=== PATIENT | female | born 1995 | race Caucasian/White ===

== ENCOUNTER → 2020-08-14 14:42 | Outpatient (CLI) | payer OTHER, SELFPAY ==
[2020-08-18 04:07] LABS: Chlamydia By Nucleic Acid AMP Negative (Negative)
[2020-08-18 07:38] LABS: Gonococcus By Nucleic Acid AMP Negative (Negative)
== END ==
PROVIDERS: Visit Provider Obstetrics & Gynecology
DX: Z12.4 Encounter for screening for malignant neoplasm of cervix (principal)
CPT/HCPCS: 87491; 87591; 88175; G0145

== ENCOUNTER 2021-08-27 05:09 | Inpatient (IN) | payer BC, SELFPAY ==
[2021-08-27] VITALS (15 sets, daily range): BP systolic 93–162; BP diastolic 50–117; PULSE 61–100; RESP 12–20; TEMP 36.4–37.1; O2SAT 94–100; BMI 18.3; BMI 17.2; BMI 18.0
[2021-08-27 05:34] LABS: Absolute Lymphocyte Count 2.15 X10^3/uL (0.83-4.51); Basophil# 0.03 X10^3/uL; Basophil% 0.3 % (0-1); Eosinophil# 0.14 X10^3/uL; Eosinophils% 1.3 % (0-5); Hematocrit 42.5 % (37-47); Hemoglobin 13.6 g/dL (12.0-15.0); Lymphocyte # 2.15 X10^3/ul (0.83-4.51); Lymphocyte % 19.9 % (19-41); Mean Corpuscular Hgb 28.5 pg (27.0-32.0); Mean Corpuscular Volume 89.1 fL (81-99); Mean Platelet Vol. 9.1 fl (6.2-12.0); Monocyte# 0.43 X10^3/uL; NRBC Flagged by Analyzer 0 % (0-5); Neutrophil # 8.04 X10^3/uL (2.7-7.7); Neutrophil % 74.2 % (47-70); Platelet Count 415 K/mm3 (150-450); RBC Distribution Width CV 14.4 % (11.6-14.6); RBC Distribution Width SD 47.1 fl (35.1-43.9); Red Blood Count 4.77 M/mm3 (4.2-5.4); White Blood Count 10.8 K/mm3 (4.4-11.0)
--- NOTE | 2021-08-27 05:42 | CT_ITS ---
EXAM: CT ABDOMEN AND PELVIS WITH INTRAVENOUS CONTRAST CLINICAL INDICATION: abd pain TECHNIQUE: Helically acquired images were obtained of the abdomen and pelvis with intravenous contrast. This CT exam was performed using one or more of the following dose reduction techniques: automated exposure control, adjustment of the mA and/or kV according to patient size, and/or use of iterative reconstruction technique. This report was created using Drobo report generation technology. CONTRAST: IV 100mL Isovue-300 RADIATION DOSE: CTDIvol = 9.16 mGy, DLP = 245.36 mGy-cm. COMPARISON: None. FINDINGS: LOWER THORAX: Unremarkable. Lung bases are clear. No cardiomegaly. No significant pericardial effusion. ABDOMEN: LIVER: Unremarkable. Homogeneous. No focal mass. GALLBLADDER AND BILE DUCTS: Unremarkable. No calcified gallstones. No gallbladder distention or wall edema. No intra- or extrahepatic biliary ductal dilation. PANCREAS: Unremarkable. No focal cystic or solid mass. SPLEEN: Unremarkable. Normal size without focal cystic or solid mass. ADRENALS: Unremarkable. No nodules. KIDNEYS AND URETERS: Unremarkable. Normal renal size and position. No hydronephrosis. STOMACH AND BOWEL: Unremarkable. No stomach or bowel distention. No focal inflammatory change. PELVIS: APPENDIX: Normal appendix. BLADDER: Unremarkable. REPRODUCTIVE: Severe bilateral hydrosalpinx. Ovaries not visualized. ABDOMEN and PELVIS: INTRAPERITONEAL SPACE: Mild ascites. No free air. BONES/JOINTS: Unremarkable. No suspicious lytic or blastic abnormality. SOFT TISSUES: Unremarkable. No discrete abdominal or pelvic wall hernia. VASCULATURE: Unremarkable. Abdominal aorta is non-dilated. LYMPH NODES: Unremarkable. No enlarged lymph nodes. CT/Abdomen/Pelvis W IV Cont ONLY IMPRESSION: 1. Severe bilateral hydrosalpinx. Infection cannot be excluded. 2. Mild ascites. 3. Normal appendix. Electronically Signed: Aaron Draper MD at 7:06 EDT ,
[2021-08-27 05:51] LABS: Anion Gap 4 (5-15); BUN 10 mg/dL (7-18); BUN/Creat Ratio 11.9 RATIO (10-20); Calcium,Total 9.2 mg/dL (8.5-10.1); Chloride 106 mmol/L (98-107); Creatinine, Serum 0.84 mg/dL (0.55-1.02); EST Glomerular Filtration Rate 89 mL/min (>60); Est Glom Filt Rate - Afr Amer 107 mL/min (>60); Estimated Creatinine Clearance 69.45 ml/min; Glucose 122 mg/dL (74-106); Internal QC Validated? YES +Cl - CLEAR BKGD; Potassium 3.8 mmol/L (3.5-5.1); Pregnancy, Serum, hCG Quali. NEGATIVE Negative; Sodium Level 136 mmol/L (136-145)
[2021-08-27] MEDS: 0.9% Normal Saline 1,000 ML 999 ML IV (05:58)
[2021-08-27] MEDS: Morphine 4 MG/ML Syringe IV (05:59)
[2021-08-27] MEDS: Ondansetron 4 MG/2 ML Vial IV (05:59)
[2021-08-27 06:27] LABS: Lactic Acid 1.3 mmol/L (0.4-1.9)
--- NOTE | 2021-08-27 07:12 | US_ITS ---
STUDY: ULTRASOUND OF THE FEMALE PELVIS - COMPLETE REASON FOR EXAM: Female, 26 years old. pelvic pain with abnormal CT LMP: 08/14/2021 TECHNIQUE: Transabdominal TECHNICAL QUALITY: Adequate. COMPARISON: CT earlier today FINDINGS: The uterus is anteverted and is in a midline position. The uterus measures 5.6 x 4.5 x 3.2 cm. Normal uterine cervix. The endometrium measures 4 mm in thickness, and is hyperechoic. There is no demonstrated endometrial mass. There is no demonstrated myometrial mass. I.U.D. - The patient does not have an I.U.D. The right ovary is non-visualized. There is a 7 x 8 cm cystic mass in the right adnexa corresponding to the mass seen on CT worrisome for tubo-ovarian abscess.. The left ovary is visualized. The left ovary measures 5.2 x 5.3 x 3.5 cm. There is no left ovarian cyst or ovarian mass. There is no visualized left adnexal mass or complex lesion. There is normal arterial and normal venous vascularity. There is a moderate amount of fluid in the cul-de-sac. The pre void volume of the bladder was ml. The post void volume of the bladder was ml. Polycystic ovary disease: No. US/Pelvic (Non ) IMPRESSION: Suspect 8 cm right-sided tubo-ovarian abscess. Electronically Signed: Maikel Perera MD at 9:08 EDT ,
[2021-08-27 07:37] LABS: Bacteria 0 SEEN /hpf (None Seen); Mucous, Urine 0 SEEN /hpf (<or=2+); Red Blood Cells-Urine 0 SEEN /hpf (0-5); White Blood Cells 0 SEEN /hpf (0-5)
[2021-08-27 07:39] LABS: Color, Urine Yellow (Yellow); Glucose, Dipstick Normal (Normal); Ketone-Dipstick Negative (Negative); Leukocyte Esterase-Dipstick Negative /ul (Negative); Nitrite-Dipstick Negative (Negative); Occult Blood-Urine 25 /ul (Negative); Protein-Dipstick Negative (Negative); Urine Bilirubin Dipstick Negative (Negative); Urine Clarity Clear (Clear); Urine Urobilinogen Normal (Normal)
[2021-08-27 07:54] LABS: Squamous Epithelial Cells - UA 0-5 SEEN /hpf (5-10)
[2021-08-27] MEDS: HYDROmorphone 1 MG/ML Syringe IV (08:17)
--- NOTE | 2021-08-27 08:19 | EDS_ITS ---
HPI History of Present Illness Chief Complaint: Abd Pain Narrative Narrative: Patient is a 26-year-old female who states that she had generalized lower abdominal pain for the past week but was on her menstrual cycle. She states she did not think much of this because of the menstrual cycle occurring. She states that around 3 in the morning she developed severe lower abdominal pain. She states with the pain she became nauseous but denies any fevers or chills nausea or vomiting prior to the pain beginning. She denies any vaginal discharge or concern for STD. She states that with the sudden increase in pain she is concerned for infection and therefore comes in for evaluation [facility] Medical History Migraine Home Medications NK 08/27/21 [History Last Taken Unknown] Allergy/AdvReac Type Severity Reaction Status Date / Time No Known Allergies Allergy Verified 08/27/21 05:17 Social History Smoking Status: Current every day smoker tobacco type: cigarettes ROS ROS ED Constitutional Constitutional ED: Denies chills or fever(s) ENT ENT ED: Denies sore throat Cardiovascular Cardiovascular: Denies chest pain Respiratory/Chest Respiratory/Chest: Denies cough or dyspnea Gastrointestinal Gastrointestinal: Reports abdominal pain and nausea; Denies diarrhea or vomiting Genitourinary Genitourinary ED: Denies dysuria Musculoskeletal Musculoskeletal: Denies myalgias Integumentary Denies rash Neurologic Neurologic: Denies headache(s) Hematologic/Lymphatic Hematologic/Lymphatic: Denies easy bleeding or easy bruising EXAM Physical Exam Const Vital Signs: 08/27/21 05:11 Temperature 97.6 F L Temperature Source Temporal Pulse Rate 61 Respiratory Rate 20 H Blood Pressure 124/76 H Blood Pressure Mean 92 Pulse Ox 100 Oxygen Delivery Method Room Air Positive well nourished and well developed General Appearance ED: well developed HEENT Reports dry mucous membranes Mouth ED: Yes dry mucous membranes Mouth: dry mucous membranes Eyes PERRL and EOMs intact bilaterally Neck supple Resp normal respiratory effort and clear to auscultation bilaterally Cardio regular rate and regular rhythm GI non-distended GI Narrative: There is mild pain with palpation in the lower abdomen diffusely but without voluntary guarding or rigidity Auscultation: normoactive bowel sounds Palpation: soft Narrative: Patient deferred Extremity normal to inspection Neuro oriented x3 and CN's II-XII intact bilaterally Sensorium / Orientation: alert Motor Exam: strength 5/5 throughout Psych mental status grossly normal Skin no rashes or lesions noted MDM MDM MDM Narrative Medical decision making narrative: Patient presented to the ER afebrile but with her sudden onset of increased pain there was concern for underlying infectious process so basic blood work and a CT were obtained. Blood work revealed no clinically significant findings. CT scan showed bilateral hydrosalpinx and as infection cannot be excluded and the ovaries were not visualized I did elect to perform a pelvic ultrasound. The results of the study still pending and therefore patient be signed out to the oncoming physician Dr. Ruiz. Patient may need an LOCOMOTIVE FIRER/FIREMAN consult based on her abnormal CT scan and pain if it persists despite medical treatment Lab Data Attestation: I reviewed the patient's lab results. Labs: Laboratory Results - last 24 hr 08/27/21 08/27/21 08/27/21 05:20 05:20 05:20 WBC 10.8 RBC 4.77 Hgb 13.6 Hct 42.5 MCV 89.1 MCH 28.5 MCHC 32.0 RDW Std Deviation 47.1 H RDW Coeff of Slim 14.4 Plt Count 415 MPV 9.1 Immature Gran % (Auto) 0.300 Neut % (Auto) 74.2 H Lymph % (Auto) 19.9 [place] % (Auto) 4.0 Eos % (Auto) 1.3 Baso % (Auto) 0.3 Absolute Neuts (auto) 8.0 H Absolute Lymphs (auto) 2.15 Nucleated RBC % 0 Sodium 136 Potassium 3.8 Chloride 106 Carbon Dioxide 26.0 Anion Gap 4 L BUN 10 Creatinine 0.84 Estim Creat Clear Calc 69.45 Est GFR (MDRD) Af Amer 107 Est GFR (MDRD) Non-Af 89 BUN/Creatinine Ratio 11.9 Glucose 122 H Lactic Acid Calcium 9.2 Serum , Qual NEGATIVE Urine Color Urine Clarity Urine pH Ur Specific [place] Urine Protein Urine Glucose (UA) Urine Ketones Urine Occult Blood Urine Nitrite Urine Bilirubin Urine Urobilinogen Ur Leukocyte Esterase Urine RBC Urine WBC Ur Squamous Epith Cells Urine Bacteria Urine Mucus 08/27/21 08/27/21 05:50 07:30 WBC RBC Hgb Hct MCV MCH MCHC RDW Std Deviation RDW Coeff of Lsim Plt Count MPV Immature Gran % (Auto) Neut % (Auto) Lymph % (Auto) [place] % (Auto) Eos % (Auto) Baso % (Auto) Absolute Neuts (auto) Absolute Lymphs (auto) Nucleated RBC % Sodium Potassium Chloride Carbon Dioxide Anion Gap BUN Creatinine Estim Creat Clear Calc Est GFR (MDRD) Af Amer Est GFR (MDRD) Non-Af BUN/Creatinine Ratio Glucose Lactic Acid 1.3 Calcium Serum , Qual Urine Color Yellow Urine Clarity Clear Urine pH 6.0 Ur Specific [place] 1.010 Urine Protein Negative Urine Glucose (UA) Normal Urine Ketones Negative Urine Occult Blood 25 H Urine Nitrite Negative Urine Bilirubin Negative Urine Urobilinogen Normal Ur Leukocyte Esterase Negative Urine RBC 0 SEEN Urine WBC 0 SEEN Ur Squamous Epith Cells 0-5 SEEN Urine Bacteria 0 SEEN Urine Mucus 0 SEEN Radiography Diagnostic Testing: Clinical Impression(s) from Imaging Studies Abdomen/Pelvis CT 08/27/21 05:42 IMPRESSION: 1. Severe bilateral hydrosalpinx. Infection cannot be excluded. 2. Mild ascites. 3. Normal appendix. Electronically Signed: Aaron Draper MD at 7:06 EDT , Discharge Plan Triage Chief Complaint: Abd Pain ED Provider: Slava Mehta Dx/Rx/DC Orders Clinical Impression: Hydrosalpinx, Pelvic pain Prescriptions: No Action NK RF: 0 Primary Care Provider: Care Physician,No Primary Referrals: Care Physician,No Primary [Primary Care Provider] -
[2021-08-27] MEDS: Ceftriaxone 1 GM/50 ML BAG IV (12:25)
[2021-08-27] MEDS: metroNIDAZOLE 500 MG/100 ML BAG 100 MG IV ×2 (12:44→22:21)
--- NOTE | 2021-08-27 12:44 | HP.PCM.OB_ITS ---
History and Physical Date of Admission: 08/27/21 Chief complaint: Abdominal pain History present illness: 26-year-old arrives with abdominal pain that started over a week ago with menstrual cycle, LMP 08/21/2021, abdominal pain increased and this morning with severe abdominal pain. Pain started on right lower quadrant now diffuse. Adolfo es vaginal discharge or bleeding. Denies fevers, chills, chest pain, shortness of breath. Patient admits to a history of chlamydia that was treated. Obstetric history: G1: Past medical history: History of STDs Past surgical history: None Allergies: No known drug allergies Social history: Half pack per day smoker, denies alcohol or drug use Family history: Denies history DVT or PE Review of systems: Besides above pertinent positives a full review of systems was performed and found to be negative Physical exam: Vitals: Blood pressure 124/76 pulse 61 respiratory rate 16 temperature 97.6 ?F General: Moderate to severe discomfort HEENT: Normocephalic/atraumatic no cervical adenopathy Cardiac/respiratory: No use of accessory muscles, nonlabored breathing Abdomen: Diffusely tender, rebound tenderness and guarding positive, nondistended Extremities: No peripheral edema normal peripheral pulses Psych: Normal affect normal demeanor nonpressured speech Labs: White blood cell count 10.8 hemoglobin 13.6 hematocrit 42.5% platelets 415. Serum test negative. Creatinine 0.84 CT scan and pelvic ultrasound: With signs of TOA on right approximately 8 cm in size Assessment plan: 26-year-old with increasing abdominal pain started on right side now diffuse abdominal pain and history of STDs along with imaging studies showing signs of TOA and physical exam showing signs of acute abdomen, at this time nonseptic. To start antibiotics Rocephin, doxycycline, Flagyl IV. Based on size of TOA greater than 7 cm unlikely to resolve with antibiotics along with acute abdomen in need of surgical treatment and evaluation. Educated patient on these findings, discussed need for surgery risk benefits alternatives. Patient states understanding and wished to proceed with surgery. Patient for diagnostic laparoscopy possible oophorectomy possible salpingectomy. Educated patient on risk for future pregnancies along with risks of bowel and bladder injury increased with TOA and history of STDs, patient states understanding and wishes to proceed. All questions were answered and consent was signed. For surgery now
--- NOTE | 2021-08-27 13:00 | FALL_PTH ---
PATIENT: LINSEY MCKINNON LOC: MS3 U#:[id number] AGE/SX: 26/ ROOM: MS306 RE08/27/[address]: Dr. Mauro Diaz MD : 1995 BED: 1 DIS: 08/29/2021 SPEC #: [id number] RECD: 08/27/21 17:03 STATUS: OTF REQ #: [id number] NIEVES: 08/27/21 13:[address]: Mauro Diaz DEPT: SURGICAL PATHOLOGY RECD BY: Tonie Frank ENTERED: 08/28/21 08:46 SP TYPE: FALL TUBES OTHR DR: No Primary Care Phys Tissues: Fallopian tube Procedures: Surgery Specimen Level IV HEADER OPERATION: Diagnostic laparoscopy, bilateral salpingectomy PRE-OP DIAGNOSIS: Abdominal pain TISSUE SUBMITTED: Bilateral fallopian tubes MICROSCOPIC DIAGNOSIS Right and left fallopian tubes, bilateral salpingectomies: Acute and chronic salpingitis. Fibrinopurulent material. See comment. AM:juan 08/31/2021 COMMENT Clinical correlation is suggested. MICROSCOPIC DESCRIPTION Slides are reviewed. GROSS DESCRIPTION Received in fixative is one container labeled with the patient's name and designated bilateral fallopian tubes. The specimen consists of two tubular structures. One tubular structure measures 14 cm in length and varies in diameter from 1.2 to 6.5 cm. The second tubular segment measures 14 cm in length and varies in diameter from 1.5 to 3 cm. Distinct fimbrial ends are not identified. The dilated portion of the larger fragment contains yellow-becerril mucoidy material. [place] Fishing Hand sections are submitted in six cassettes as follows: 1-3 ? larger tubular fragment, 4-6 ? smaller tubular fragment. / AM:juan 08/28/2021 TC:2 CPT: 31780 x2
[2021-08-27] MEDS: Bupivacaine Mpf 0.5% 30 ML VIAL (13:25)
--- NOTE | 2021-08-27 16:13 | OP.PCM_ITS ---
Report of Operation Date of Procedure: 08/27/21 Pre-Operative Diagnosis: Tubo-ovarian abscess Post-Operative Diagnosis: tubo-ovarian abscess bilaterally, ruptured left tubo- ovarian abscess Surgery/Procedure Performed:: Diagnostic laparoscopy, bilateral salpingectomy, removal of bilateral tubo-ovarian abscesses, lysis of adhesions, pelvic and abdominal irrigation Description of Surgical Findings:: Surgeon: Mauro Diaz MD Anesthesia: General EBL: 20 cc Urine output: 900 cc IV fluids: 1200 cc Complications: None Specimen: Bilateral fallopian tubes, bilateral tubo-ovarian abscesses, tubo- ovarian abscess culture Findings: Pelvis with large amount of adhesions. Bilateral tubo-ovarian abscesses right greater than left. Right tubo-ovarian abscess 8 to 10 cm in size, left tubo-ovarian abscess 4 to 5 cm in size. Left tubo-ovarian abscess noted to be ruptured prior to manipulation. Left bilateral fallopian tubes with posterior uterine adhesions along with adhesions to the ovaries. Both ovaries with large amount of adhesions to the posterior uterus and posterior cul-de-sac. Moderate amount of utero/fallopian tube/ovarian adhesions to the omentum. Total time with lysis of adhesions 30 minutes. Bilateral ovaries with no signs of infection, no pathology noted. Overall normal uterus. Upper abdomen with no signs of infections or adhesions. Appendix with small amount of fallopian tube adhesions, otherwise no signs of infection or pathology. 3500 cc of pelvic and abdominal irrigation used. Fascia closed with PDS suture. Betadine and subcutaneous irrigation used at operative sites. 15 round MARY CARMEN drain placed in posterior cul-de-sac. Consent: Patient arrived with acute abdominal pain history of STDs and surgical abdomen along with imaging studies with suspicion for tubo-ovarian abscess in need of diagnostic laparoscopy possible bilateral salpingectomy and removal of tubo- ovarian abscess. Patient understands the risk of the procedure include but are not limited to visceral or vascular injury, prolonged hospitalization, blood loss and need for transfusion, reoperation. Patient state understanding wish to proceed. All questions were answered and consent was signed. Procedure: Patient was brought back to the OR where general anesthesia was found to be adequate. Patient was given 1 g Rocephin IV, 500 mg of Flagyl IV, 100 mg of doxycycline IV for infection prophylaxis. Patient was prepared and draped in dorsal lithotomy position with yellowfin stirrups. Weighted speculum was placed in the posterior aspect of vagina and cervical dilators were used to dilate the cervix. Uterine manipulator was placed. Varies needle was inserted at the umbilicus water safety test was passed and abdomen was insufflated. 5 mm midline supraumbilical trocar was inserted under direct visualization. Laparoscope was inserted and above findings were noted. Bilateral lower quadrant 5 mm trocar incisions were made under direct visualization and trochars were placed. Irrigation of ruptured left tubo-ovarian abscess was performed. Cultures were obtained and sent to pathology. Lysis of adhesions of the above adhesions was performed with the help of an atraumatic grasper and a LigaSure device. Appendix was freed of adhesions good hemostasis was noted. Bilateral ovaries with lysis of adhesions from uterus and posterior cul-de-sac along with fallopian tubes. Fallopian tubes as above. Right fallopian tube identified out to the fimbriae and the mesosalpinx was cut and cauterized. Left fallopian tube was identified to the fimbria and the mesosalpinx was cut and cauterized. Supraumbilical midline trocar was removed and 12 mm trocar was inserted under direct visualization. Endo Catch bag x2 was placed in the abdomen and bilateral fallopian tubes were removed and sent to pathology. Good hemostasis was noted. 3500 cc of intra-abdominal and pelvic irrigation was performed and no signs of infection were noted after procedure. No other pathology was noted. Laparoscopically 15 round MARY CARMEN drain was placed in posterior cul-de-sac, secured abdominally. Abdomen was desufflated and trochars removed under direct visualization. 12 mm trocar fascia was closed with PDS. All trocar sites were irrigated with irrigation and Betadine. All trocar sites were closed in a subcutaneous fashion. All counts were correct x2. Patient tolerated procedure well and was brought to recovery in stable condition.
[2021-08-27] MEDS: Sugammadex Sodium 200 MG/2 ML VIAL IV (16:30)
[2021-08-27] MEDS: Ketorolac 15 MG/ML Vial IV ×2 (18:50→23:32)
[2021-08-27] MEDS: Acetaminophen 500 MG Tablet 1000 MG PO ×2 (18:51→23:34)
[2021-08-27] MEDS: Docusate Sodium 100 MG Capsule PO (22:33)
[2021-08-27] MEDS: oxyCODONE 5 MG Tablet PO (22:39)
[2021-08-28 02:19] VITALS: BP 99/59; PULSE 60; RESP 16; TEMP 36.7; O2SAT 100
[2021-08-28] MEDS: oxyCODONE 5 MG Tablet PO ×4 (02:43→16:57)
[2021-08-28] MEDS: Ketorolac 15 MG/ML Vial IV ×4 (05:30→23:13)
[2021-08-28] MEDS: Acetaminophen 500 MG Tablet 1000 MG PO ×3 (05:30→20:26)
[2021-08-28] MEDS: Ondansetron ODT 4 MG Tablet PO (06:09)
[2021-08-28 06:18] LABS: Hematocrit 34.3 % (37-47); Hemoglobin 11.1 g/dL (12.0-15.0); Mean Corp Hgb Conc 32.4 g/dL (32-36); Mean Corpuscular Hgb 28.4 pg (27.0-32.0); Mean Corpuscular Volume 87.7 fL (81-99); Mean Platelet Vol. 9.4 fl (6.2-12.0); Platelet Count 329 K/mm3 (150-450); RBC Distribution Width CV 14.6 % (11.6-14.6); RBC Distribution Width SD 47.2 fl (35.1-43.9); Red Blood Count 3.91 M/mm3 (4.2-5.4)
[2021-08-28 06:19] VITALS: BP 104/58; PULSE 62; RESP 18; TEMP 36.8; O2SAT 100
--- NOTE | 2021-08-28 08:14 | PN.OBGYN_ITS ---
Subjective Subjective Postoperative day 1. Patient has ambulated once to the restroom. Tolerating small sips. Having some nausea. Objective Data Objective Data Vital Signs: Vital Signs Temp Pulse Resp BP Pulse Ox 98.3 F 62 18 104/58 L 100 08/28/21 06:19 08/28/21 06:19 08/28/21 06:19 08/28/21 06:19 08/28/21 06:19 Oxygen Flow Rate (L/min) 2 Oxygen Delivery Method Room Air Weight: 44.5 kg Body Mass Index (BMI) 18.0 Intake & Output: Intake and Output for Last 24 Hours 08/26/21 08/27/21 08/28/21 23:59 23:59 23:59 Intake Total 1510 / 1510 260 / 260 Output Total 1850 / 1850 930 / 930 Balance -340 / -340 -670 / -670 Lab / Micro Data Result Diagrams: 08/28/21 05:30 08/27/21 05:20 Labs: Laboratory Results - last 24 hr 08/28/21 05:30: WBC 14.0 H, RBC 3.91 L, Hgb 11.1 L, Hct 34.3 L, MCV 87.7, MCH 28.4, MCHC 32.4, RDW Std Deviation 47.2 H, RDW Coeff of Slim 14.6, Plt Count 329, MPV 9.4 Radiography Diagnostic Testing: Radiology Impression Pelvis Ultrasound 08/27/21 07:12 IMPRESSION: Suspect 8 cm right-sided tubo-ovarian abscess. Electronically Signed: Maikel Perera MD at 9:08 EDT , Physical Exam Const alert, oriented x3 and no apparent distress HEENT normocephalic Head and Scalp: atraumatic Resp normal respiratory effort Cardio regular rate GI GI Narrative: Soft, no rebound or guarding. Mildly tender. Incisions tyler n/dry/intact. Drain present with small amount of serosanguineous fluid. Extremity normal to inspection and no pedal edema Neuro no focal motor deficits and no sensory deficits noted Psych mental status grossly normal and affect normal Assessment & Plan (1) Hydrosalpinx: PLAN: Postoperative day 1 status post diagnostic laparoscopy, bilateral salpingectomy, removal of bilateral tubo-ovarian abscesses, lysis of adhesions, pelvic and abdominal irrigation for tubo-ovarian abscess and hydrosalpinx. -Continue antibiotic treatment with Rocephin, doxycycline, and flagyl. ?Drain output: 380 cc in 24 hours ?Slight leukocytosis today. We will repeat CBC tomorrow. Patient continues to be afebrile. Leukocytosis likely secondary to surgical procedure. ?Continue pain control with: Oxycodone, Tylenol, Motrin ?Nausea control with Zofran Diet: Regular IV fluid: Hep-Lock IV DVT prophylaxis: SCDs, Lovenox 40 mg daily while inpatient Dispo: Plan for continued antibiotic therapy. Plan discharge home tomorrow with oral antibiotics. Plan for drain removal tentatively Tuesday of next week. (2) Pelvic inflammatory disease (PID): (3) Tubo-ovarian abscess: (4) Other acute postprocedural pain:
[2021-08-28 10:00] VITALS: BP 109/74; PULSE 78; RESP 18; TEMP 36.8; O2SAT 100
[2021-08-28] MEDS: metroNIDAZOLE 500 MG/100 ML BAG 100 MG IV ×2 (10:02→22:04)
[2021-08-28] MEDS: Docusate Sodium 100 MG Capsule PO ×2 (10:04→22:24)
[2021-08-28] MEDS: 0.9% Saline Lock 10 ML Syringe IV ×3 (10:08→23:13)
[2021-08-28] MEDS: Enoxaparin 40 MG/0.4 ML Syringe SC (10:08)
--- NOTE | 2021-08-28 11:45 | CASEMGMT ---
RN SIERRA Face to Face with patient for initial transition planning/care coordination assessment. RN CM introduced self and role at [facility]. Patient lying in bed, alert and oriented, family at bedside. Patient willing to participate in assessment and is able to answer all questions appropriately. Care providers, pharmacy, and demographics verified. Patient wishes to discharge home, denies need for home health at this time. Patient states he has no further needs or concerns at this time. CM to follow for discharge planning needs that may arise. PCP: No PCP, list provided to patient Specialists: none Preferred Pharmacy: [facility] Insurance: [facility] Prescription Benefit: yes Living Will/HPOA: none LNOK:mother Living Arrangements: Patient lives with mother in a triplex. Patient is independent and able to ambulate stairs. Transportation: mother DME/HHC: Patient denies DME in the home. No previous HHC Disposition Plan: Patient to discharge home with family support and follow-up plans in place. Anika VALERIO, RN, CM
[2021-08-28 14:19] VITALS: BP 113/64; PULSE 68; RESP 18; TEMP 36.6; O2SAT 99
[2021-08-28] MEDS: Ceftriaxone 1 GM/50 ML BAG IV (14:19)
[2021-08-28] MEDS: dexAMETHasone 4 MG/ML Vial IV (16:57)
[2021-08-28] MEDS: proMETHazine 25 MG Tablet 12.5 MG PO (16:57)
[2021-08-28] MEDS: Dextrose 5%/0.9% NaCl 1,000 ML 75 ML IV (17:07)
[2021-08-28 17:08] VITALS: BP 117/55; PULSE 58; RESP 18; TEMP 36.7; O2SAT 98
[2021-08-28 22:07] VITALS: BP 102/64; PULSE 55; RESP 16; TEMP 36.8; O2SAT 100
--- NOTE | 2021-08-28 22:27 | NURSING ---
pt walked a full lap in the phillip. tolerated well.
[2021-08-29] MEDS: Dextrose 5%/0.9% NaCl 1,000 ML 75 ML IV (05:33)
[2021-08-29] MEDS: oxyCODONE 5 MG Tablet PO ×2 (05:33→10:10)
[2021-08-29] MEDS: Acetaminophen 500 MG Tablet 1000 MG PO (05:33)
--- NOTE | 2021-08-29 05:39 | NURSING ---
2200 dose of doxycycline IV did not run. is running now. call to pharmacy was placed and instructed to hold the 1000 dose for this AM. primary RN aware
[2021-08-29 06:35] VITALS: BP 106/70; PULSE 63; RESP 16; TEMP 36.8; O2SAT 100
--- NOTE | 2021-08-29 06:51 | PCM.PN.OB ---
Subjective Subjective Postop day 2. Ambulated overnight. Feeling better than yesterday. Denies emesis today. Abdomen still slightly tender. States she has a difficult time with appetite before surgery. No flatus. Voiding well. Objective Data Objective Data Vital Signs: Vital Signs Temp Pulse Resp BP Pulse Ox 98.2 F 63 16 106/70 100 08/29/21 06:35 08/29/21 06:35 08/29/21 06:35 08/29/21 06:35 08/29/21 06:35 Oxygen Flow Rate (L/min) 2 Oxygen Delivery Method Room Air Weight: 44.5 kg Body Mass Index (BMI) 18.0 Intake & Output: Intake and Output for Last 24 Hours 08/27/21 08/28/21 08/29/21 23:59 23:59 23:59 Intake Total 1510 / 1510 1592.5 / 1592.5 652.5 / 652.5 Output Total 1850 / 1850 2145 / 2145 450 / 450 Balance -340 / -340 -552.5 / -552.5 202.5 / 202.5 Lab / Micro Data Result Diagrams: 08/28/21 05:30 08/27/21 05:20 Micro: Microbiology 08/27/21 15:02 Abs - Other Gram Stain - Final 08/27/21 15:02 Abs - Other Wound Culture - Preliminary No growth-Final to follow Physical Exam Const alert, oriented x3 and no apparent distress HEENT normocephalic Head and Scalp: atraumatic Resp normal respiratory effort and clear to auscultation bilaterally Cardio regular rate and regular rhythm GI GI Narrative: Mildly tender, incisions c/d/i. slightly hypoactive bowel sounds. MARY CARMEN with serosanguinous drainage. Extremity no pedal edema Assessment & Plan (1) Tubo-ovarian abscess: PLAN: PLAN: Postoperative day 2 status post diagnostic laparoscopy, bilateral salpingectomy, removal of bilateral tubo-ovarian abscesses, lysis of adhesions, pelvic and abdominal irrigation for tubo-ovarian abscess and hydrosalpinx. -Continue last doses of IV antibiotics ?Drain output: 225cc 24 h ? Continues to be afebrile. CBC pending today. ?Continue pain control with: Oxycodone, Tylenol, Motrin ?Nausea control with Zofran and phenergan. Diet: Regular IV fluid: Hep-Lock IV DVT prophylaxis: SCDs, Lovenox 40 mg daily while inpatient Dispo: Plan for continued antibiotic therapy. Plan discharge home today with oral antibiotics. Plan for drain removal Tuesday of next week depending out output. (2) Pelvic inflammatory disease (PID): (3) Other acute postprocedural pain: (4) Hydrosalpinx:
--- NOTE | 2021-08-29 07:05 | PCM.DC ---
Discharge Instructions Diet Discharge Diet: No restrictions Activity Discharge Activity: Return to Normal Activity and May Shower May resume sexual activity in: 3 weeks Weight Bearing Status: Weight bearing as tolerated Dressing / Incision Call your doctor if your incision/area has: Continuous Slow Oozing, Increased Pain/ Swelling, Increased Redness, Foul Smelling Discharge and Swelling at the incision site Call your doctor if you observe: Fever of 101 or Higher, Inability to urinate, Inability to have a bowel movement, Using more than 1 pad per hour, Shortness of breath, Dizziness, Swelling in the ankles, Chest pain and Calf discomfort Cleanse incision/area with: Soap & Water Follow Up Care Please Follow Up With: Haylee Diaz DO When: Tuesday in office as scheduled Test Results: Test results from this visit will be discussed in further detail at your follow-up appointment, if applicable. Discharge Plan Admission Admit Date/Time: 08/27/21 12:27 Primary Reason for Your Visit: Pelvic inflammatory disease, tubo-ovarian abscess Attending Provider: Mauro Diaz Primary Care Provider: Care Physician,Brittany Primary Discharge Orders/Prescriptions Prescriptions: New promethazine 25 mg Tablet 12.5 mg PO Q4H PRN PRN (Reason: NAUSEA/VOMITING) 30 Days Qty: 30 RF: 0 ondansetron 4 mg Tablet,Disintegrating 4 mg PO Q6H PRN PRN (Reason: NAUSEA) 30 Days Qty: 30 RF: 0 oxycodone 5 mg Tablet 5 mg PO Q6H PRN (Reason: pain) 4 Days Qty: 20 RF: 0 amoxicillin-pot clavulanate [Augmentin XR] 1,000-62.5 mg tablet extended release 12 hr 2 tab PO Q12H 10 Days Qty: 40 RF: 0 Continued Excedrin Migraine 250-250-65 mg Tablet 2 tab PO Q6H PRN (Reason: Migraine Headache) RF: 0 Referrals / Follow Up: Care Physician,No Primary [Primary Care Provider] - Disposition Disposition (needs filled in before D/C Order can be placed): Home, Self Care
[2021-08-29 08:02] LABS: Absolute Lymphocyte Count 0.88 X10^3/uL (0.83-4.51); Absolute Neutrophil Count 6.9 X10^3/uL (2.0-7.7); Basophil# 0.01 X10^3/uL; Basophil% 0.1 % (0-1); Hemoglobin 10.3 g/dL (12.0-15.0); Lymphocyte # 0.88 X10^3/ul (0.83-4.51); Lymphocyte % 10.7 % (19-41); Mean Corp Hgb Conc 32.2 g/dL (32-36); Mean Platelet Vol. 9.7 fl (6.2-12.0); Monocyte# 0.44 X10^3/uL; Monocyte% 5.3 % (0-10); NRBC Flagged by Analyzer 0 % (0-5); Neutrophil # 6.86 X10^3/uL (2.7-7.7); Neutrophil % 83.4 % (47-70); Platelet Count 330 K/mm3 (150-450); RBC Distribution Width CV 14.3 % (11.6-14.6); RBC Distribution Width SD 46.1 fl (35.1-43.9); Red Blood Count 3.68 M/mm3 (4.2-5.4); White Blood Count 8.2 K/mm3 (4.4-11.0)
[2021-08-29] MEDS: Docusate Sodium 100 MG Capsule PO (09:53)
[2021-08-29] MEDS: Enoxaparin 40 MG/0.4 ML Syringe SC (09:53)
[2021-08-29] MEDS: Ceftriaxone 1 GM/50 ML BAG IV (09:54)
[2021-08-29] MEDS: Ondansetron ODT 4 MG Tablet PO (10:10)
[2021-08-29] MEDS: metroNIDAZOLE 500 MG/100 ML BAG 100 MG IV (10:58)
[2021-08-29 11:35] VITALS: O2SAT 100
--- NOTE | 2021-08-29 13:08 | NURSING ---
reviewed instructions with pt about importance of taking antibiotics until finished gave pt address& fax # to dr vega office gave instructions for emptying and recording j/p gave
== END 2021-08-29 13:44 | disposition home or self-care (01) | DRG 743 ==
LOC: ED 12:25 → SDC 12:28 → AC 14:20 → ED 15:07 → MS3 08-28 03:07
PROVIDERS: Student in an Organized Health Care Education/Training Program; Admitting Provider Obstetrics & Gynecology; Emergency Provider Emergency Medicine; Visit Provider Obstetrics & Gynecology
PROC: 0UT74ZZ Resection of Bilateral Fallopian Tubes, Percutaneous Endoscopic Approach (ICD-10-PCS; principal; 2021-08-27 12:45)
DX: N70.93 Salpingitis and oophoritis, unspecified (principal); F17.210 Nicotine dependence, cigarettes, uncomplicated; N73.6 Female pelvic peritoneal adhesions (postinfective); Z28.310 Unvaccinated for COVID-19; Z28.9 Immunization not carried out for unspecified reason
CPT/HCPCS: 36415; 74177; 76856; 80048; 81001; 83605; 84703; 85025; 85027; 87070; 87075; 87205; 88305; 94762; 97802; 99283; 99406; J7030; J7040; J7050; Q9967; A4216; J2405

== ENCOUNTER → 2021-09-08 | Outpatient (CLI) | payer BC, OTHER, SELFPAY | END | disposition home or self-care (01) | PROVIDERS: Visit Provider Obstetrics & Gynecology | DX: N76.0 Acute vaginitis (principal) ==

== ENCOUNTER 2021-10-30 20:51 | Emergency (ER) | payer BC, SELFPAY ==
[2021-10-30 20:52] VITALS: BP 93/51; PULSE 51; RESP 16; TEMP 35.1; O2SAT 100; BMI 16.9
--- NOTE | 2021-10-30 21:16 | EX.ED.DYSGE1 ---
HPI History of Present Illness Chief Complaint: Nausea/Vomiting Informant: patient Narrative Narrative: 26-year-old female presenting to the emergency room with nausea vomiting and diarrhea. The patient states that she was feeling fine up until about 2 hours ago. She ate an egg this morning that she believes was undercooked and wonders if she got food poisoning. She denies any blood in the stool or the vomit. No fevers. [facility] Medical History Asthma Hydrosalpinx Migraine Pelvic pain Smoker Syncopal episodes Tubo-ovarian abscess Home Medications [id number] 250 mg-250 mg-65 mg tablet (Excedrin Migraine) 2 tab PO Q6H PRN Migraine Headache 08/27/21 [History Last Taken Unknown] amoxicillin-potassium clavulanate 1,000 mg-62.5 mg tablet,ext.rel 12hr (Augmentin XR) 2 tab PO Q12H 10 days #40 tabs 08/29/21 [Rx Last Taken Unknown] ondansetron 4 mg disintegrating tablet 4 mg PO Q6H PRN PRN NAUSEA 30 days #30 tabs 08/29/21 [Rx Last Taken Unknown] oxycodone 5 mg tablet 5 mg PO Q6H PRN pain 4 days #20 tabs 08/29/21 [Rx Last Taken Unknown] promethazine 25 mg tablet 12.5 mg PO Q4H PRN PRN NAUSEA/VOMITING 30 days #30 tabs 08/29/21 [Rx Last Taken Unknown] ciprofloxacin HCl 500 mg tablet (Cipro) 500 mg PO BID #10 tabs 10/30/21 [Rx Last Taken Unknown] ondansetron 4 mg disintegrating tablet 4 mg PO Q6H PRN nausea and vomiting #20 tabs 10/30/21 [Rx Last Taken Unknown] Allergy/AdvReac Type Severity Reaction Status Date / Time No Known Allergies Allergy Verified 10/30/21 20:52 Social History (Updated 10/30/21 @ 21:[address] Alexis Riley DO) Smoking Status: Current every day smoker tobacco type: cigarettes substance use type: does not use ROS ROS ED Constitutional Constitutional ED: Denies chills or weight loss Eyes Eyes: Denies change in vision or diplopia ENT ENT ED: Denies ear pain, rhinorrhea or sore throat Cardiovascular Cardiovascular: Denies chest pain, orthopnea, palpitations or racing heartbeat Respiratory/Chest Respiratory/Chest: Denies cough, dyspnea or orthopnea Gastrointestinal Gastrointestinal: Reports abdominal pain, diarrhea, nausea and vomiting Genitourinary Genitourinary ED: Denies dysuria, hematuria or urinary frequency Musculoskeletal Musculoskeletal: Denies arthralgias or myalgias Integumentary Denies abscess or rash Neurologic Neurologic: Denies headache(s) or weakness Psychiatric Psychiatric: Denies anxiety, depression, suicidal ideation or suicidal thoughts Endocrine Endocrinology: Denies polydipsia, polyphagia or polyuria Allergic/Immunologic Allergic/Immunologic ED: Denies mouth swelling, tongue swelling or urticaria EXAM Physical Exam Narrative Exam Narrative: Patient is actively vomiting Const Vital Signs: 10/30/21 20:52 Temperature 95.2 F L Temperature Source Temporal Pulse Rate 51 L Respiratory Rate 16 Blood Pressure 93/51 L Blood Pressure Mean 65 Pulse Ox 100 Oxygen Delivery Method Room Air Positive well nourished and well developed General Appearance ED: well developed HEENT Reports normocephalic, head/scalp atraumatic and moist mucous membranes Eyes PERRL and EOMs intact bilaterally Neck no lymphadenopathy, supple and no JVD Resp normal respiratory effort and clear to auscultation bilaterally Cardio regular rate, regular rhythm and no murmurs GI normal to inspection, nondistended, normoactive bowel sounds and non-tender Palpation: soft Back/Spine no CVA tenderness and normal ROM Extremity normal to inspection General Extremety ED: Negative for edema General Extremity: Negative for edema Neuro oriented x3 and CN's II-XII intact bilaterally Sensorium / Orientation: alert Motor Exam: strength 5/5 throughout Psych mental status grossly normal Mood & Affect: Negative for depressed or tearful Skin no rashes or lesions noted and no wounds MDM MDM MDM Narrative Medical decision making narrative: Patient's blood work is negative. She was able to provide us a stool specimen. Patient received IV fluids Bentyl and Zofran. She was redosed with Zofran but continues to vomit. She is also developing abdominal pain I gave her for morphine as well as oral Phenergan. Repeat examination finds her to be resting comfortably. Patient will be continue to observe and will let her rest to bed. I will write for her to have Zofran. I am also can write for her to have Cipro should her stool specimen come back positive as there was noted to have some blood in the stool. Otherwise she does not need to fill the Cipro. Lab Data Attestation: I reviewed the patient's lab results. Labs: Laboratory Results - last 24 hr 10/30/21 10/30/21 21:20 21:20 WBC 10.0 RBC 4.49 Hgb 12.8 Hct 40.8 MCV 90.9 MCH 28.5 MCHC 31.4 L RDW Std Deviation 48.6 H RDW Coeff of Slim 14.6 Plt Count 301 MPV 9.9 Immature Gran % (Auto) 0.200 Neut % (Auto) 61.7 Lymph % (Auto) 29.2 [place] % (Auto) 6.3 Eos % (Auto) 2.1 Baso % (Auto) 0.5 Absolute Neuts (auto) 6.2 Absolute Lymphs (auto) 2.91 Nucleated RBC % 0 Sodium 138 Potassium 3.7 Chloride 111 H Carbon Dioxide 21.0 Anion Gap 6 BUN 8 Creatinine 0.84 Estim Creat Clear Calc 66.55 Est GFR (MDRD) Af Amer 107 Est GFR (MDRD) Non-Af 88 BUN/Creatinine Ratio 9.5 L Glucose 126 H Calcium 9.0 Total Bilirubin 0.40 AST 18 ALT 17 Alkaline Phosphatase 48 Total Protein 7.3 Albumin 4.0 Globulin 3.3 Albumin/Globulin Ratio 1.2 Lipase 77 Discharge Plan Triage Chief Complaint: Nausea/Vomiting ED Provider: Alexis Riley Dx/Rx/DC Orders Clinical Impression: Nausea, vomiting and diarrhea, Abdominal pain Instructions: ED Vomiting and Diarrhea ... Prescriptions: New ciprofloxacin HCl [Cipro] 500 mg tablet 500 mg PO BID Qty: 10 0RF ondansetron 4 mg tablet,disintegrating 4 mg PO Q6H PRN (Reason: nausea and vomiting) Qty: 20 0RF No Action Excedrin Migraine 250-250-65 mg Tablet 2 tab PO Q6H PRN (Reason: Migraine Headache) promethazine 25 mg Tablet 12.5 mg PO Q4H PRN PRN (Reason: NAUSEA/VOMITING) 30 Days Qty: 30 0RF ondansetron 4 mg Tablet,Disintegrating 4 mg PO Q6H PRN PRN (Reason: NAUSEA) 30 Days Qty: 30 0RF oxycodone 5 mg Tablet 5 mg PO Q6H PRN (Reason: pain) 4 Days Qty: 20 0RF amoxicillin-pot clavulanate [Augmentin XR] 1,000-62.5 mg tablet extended release 12 hr 2 tab PO Q12H 10 Days Qty: 40 0RF Primary Care Provider: Care Physician,No Primary Referrals: Care Physician,No Primary [Primary Care Provider] - Disposition Disposition: Home, Self Care
[2021-10-30] MEDS: 0.9% Normal Saline 1,000 ML 1000 ML IV (21:17)
[2021-10-30] MEDS: Dicyclomine 20 MG/2 ML Vial IM (21:18)
[2021-10-30] MEDS: Ondansetron 4 MG/2 ML Vial IV ×2 (21:20→22:14)
[2021-10-30 21:55] LABS: ALB/GLOB Ratio 1.2 RATIO (0.9-2.4); AST(SGOT) 18 U/L (15-37); Alanine Aminotransfer ALT/SGPT 17 U/L (13-56); Alkaline Phosphatase 48 U/L (45-117); Anion Gap 6 (5-15); BUN 8 mg/dL (7-18); BUN/Creat Ratio 9.5 RATIO (10-20); Chloride 111 mmol/L (98-107); Creatinine, Serum 0.84 mg/dL (0.55-1.02); EST Glomerular Filtration Rate 88 mL/min (>60); Est Glom Filt Rate - Afr Amer 107 mL/min (>60); Estimated Creatinine Clearance 66.55 ml/min; Globulin 3.3 g/dL (2.2-4.2); Glucose 126 mg/dL (74-106); Lipase 77 U/L (73-393); Potassium 3.7 mmol/L (3.5-5.1); Protein, Total 7.3 g/dL (6.4-8.2); Sodium Level 138 mmol/L (136-145)
[2021-10-30 22:00] LABS: Absolute Lymphocyte Count 2.91 X10^3/uL (0.83-4.51); Absolute Neutrophil Count 6.2 X10^3/uL (2.0-7.7); Basophil# 0.05 X10^3/uL; Basophil% 0.5 % (0-1); Eosinophil# 0.21 X10^3/uL; Eosinophils% 2.1 % (0-5); Hematocrit 40.8 % (37-47); Hemoglobin 12.8 g/dL (12.0-15.0); Lymphocyte # 2.91 X10^3/ul (0.83-4.51); Lymphocyte % 29.2 % (19-41); Mean Corp Hgb Conc 31.4 g/dL (32-36); Mean Corpuscular Hgb 28.5 pg (27.0-32.0); Mean Corpuscular Volume 90.9 fL (81-99); Mean Platelet Vol. 9.9 fl (6.2-12.0); Monocyte# 0.63 X10^3/uL; Monocyte% 6.3 % (0-10); NRBC Flagged by Analyzer 0 % (0-5); Neutrophil # 6.16 X10^3/uL (2.7-7.7); Neutrophil % 61.7 % (47-70); Platelet Count 301 K/mm3 (150-450); RBC Distribution Width CV 14.6 % (11.6-14.6); RBC Distribution Width SD 48.6 fl (35.1-43.9); Red Blood Count 4.49 M/mm3 (4.2-5.4)
[2021-10-30] MEDS: Morphine 4 MG/ML Syringe IV (22:12)
[2021-10-30] MEDS: proMETHazine 25 MG Tablet PO (23:03)
[2021-10-30 23:30] VITALS: RESP 14
[2021-10-31 02:00] VITALS: BP 131/57; BP 141/100; PULSE 56; PULSE 60
[2021-10-31] MEDS: 0.9% Normal Saline 1,000 ML 999 ML IV (02:13)
[2021-10-31] MEDS: proCHLORPERazine 10 MG/2 ML Vial IV (02:13)
[2021-10-31 03:22] VITALS: RESP 14
[2021-10-31 05:12] VITALS: BP 97/55; PULSE 60; RESP 14; O2SAT 98
== END 2021-10-31 08:24 | disposition home or self-care (01) ==
PROVIDERS: Emergency Provider Emergency Medicine; Visit Provider Emergency Medicine
DX: R11.2 Nausea with vomiting, unspecified (principal); F17.210 Nicotine dependence, cigarettes, uncomplicated; R10.9 Unspecified abdominal pain; R19.7 Diarrhea, unspecified; J45.909 Unspecified asthma, uncomplicated
CPT/HCPCS: 80053; 83690; 85025; 87506; 96361; 96372; 96374; 96375; 96376; 99283; J7030; A4216; J2405

== ENCOUNTER 2021-12-16 03:40 | Emergency (ER) | payer BC, SELFPAY ==
[2021-12-16 03:41] VITALS: BP 135/114; PULSE 59; RESP 16; TEMP 36.6; O2SAT 97; BMI 17.6
--- NOTE | 2021-12-16 03:55 | EDS_ITS ---
HPI History of Present Illness Chief Complaint: Abd Pain Informant: patient Narrative Narrative: Patient presents with right lower quadrant area pain. She states this started about 1:00 this morning. It was pretty significant when it first started. But it was waxing and waning. It is now more constant. It is started and stayed in the same area. She states she does have a little pain referring to the back but its only a small amount. When the pain is bad she has had nausea and vomiting. But she was eating fine prior to this. She felt perfectly fine leading up to this. She was not having pain. Her last menstrual period ended last week and was normal timing. She is not having any bleeding or discharge. She does not have a known history of kidney stones. She states she might of had an ovarian cyst in the past but it would have been around the time when she delivered which was about 7 years ago. That was a normal vaginal delivery. She is G1, P1. She did have surgery for bilateral salpingectomy for tubo-ovarian abscess. Patient is also not been having fevers recently. She felt perfectly fine until about 1:00 this morning. [facility] Medical History Asthma Hydrosalpinx Migraine Pelvic pain Smoker Syncopal episodes Tubo-ovarian abscess Allergy/AdvReac Type Severity Reaction Status Date / Time No Known Allergies Allergy Verified 12/16/21 03:45 Social History Smoking Status: Current every day smoker tobacco type: cigarettes substance use type: does not use ROS ROS ED Constitutional Constitutional ED: Denies chills or fever(s) ENT ENT ED: Denies rhinorrhea or sore throat Cardiovascular Cardiovascular: Denies chest pain or palpitations Respiratory/Chest Respiratory/Chest: Denies cough or dyspnea Gastrointestinal Gastrointestinal: Reports abdominal pain, nausea and vomiting; Denies constipation, diarrhea or melena Genitourinary Genitourinary ED: Denies dysuria, hematuria or urinary frequency Musculoskeletal Musculoskeletal: Reports back pain Integumentary Denies rash Neurologic Neurologic: Denies paresthesias or weakness Endocrine Endocrinology: Denies polydipsia or polyuria Hematologic/Lymphatic Hematologic/Lymphatic: Denies easy bleeding or easy bruising Allergic/Immunologic Allergic/Immunologic ED: Denies urticaria EXAM Physical Exam Const Vital Signs: 12/16/21 03:41 12/16/21 06:35 Temperature 97.9 F Temperature Source Temporal Pulse Rate 59 L 88 Respiratory Rate 16 19 H Blood Pressure 135/114 H 134/80 H Blood Pressure Mean 121 98 Pulse Ox 97 98 Oxygen Delivery Method Room Air Room Air Positive well nourished and well developed Constitutional Narrative: Patient looks uncomfortable. She has trouble actually sitting still in the bed. She will be given medicines for pain and nausea. General Appearance ED: well developed; Negative for cyanotic or diaphoretic HEENT Reports moist mucous membranes Eyes General Eye ED: Negative for scleral icterus Neck no lymphadenopathy Resp normal respiratory effort and clear to auscultation bilaterally Auscultation: Negative for rales, rhonchi or wheezes Cardio regular rate, regular rhythm and no murmurs GI normal to inspection, nondistended, normoactive bowel sounds GI Narrative: Abdomen is thin. Surgical sites from earlier this year look well-healed. Abdomen is thin and flat. There really is not a lot of tenderness. She feels pressure when I press in the lower right quadrant area. But she states it just hurts so much anyway that pressing does not really change it much. I feel no mass. There is no rebound or guarding. There is no bump tenderness of the bed. Back/Spine Back/Spine Narrative: She does appear to have some mild right CVA tenderness. Extremity normal to inspection General Extremety ED: Negative for edema or tenderness General Extremity: Negative for edema Neuro Sensorium / Orientation: alert Psych mental status grossly normal Skin no rashes or lesions noted MDM MDM MDM Narrative Medical decision making narrative: Patient is rechecked. She is resting. She states she is feeling great now. She is not hurting. No nausea. Her abdomen is still relatively benign. I am not getting any area of tenderness. We talked about her CT scan that showed a cyst on the left. She does say that her pain was all on the right side though. Her blood work shows normal CBC including white count hemoglobin platelets. Electrolytes liver function tests lipase are normal. is negative. Urine shows no sign of infection. CT scan showed cystic structure with some free fluid. There was some mild thickening of portions of the bowel but she has no GI type symptoms. Patient is pending ultrasound. She is an ultrasound at this time. She is turned over the oncoming physician. I think as long as she does not show signs of torsion she can likely go home. This is most likely a ruptured ovarian cyst. Lab Data Attestation: I reviewed the patient's lab results. Labs: Laboratory Results - last 24 hr 12/16/21 12/16/21 12/16/21 03:51 03:51 03:51 WBC 6.9 RBC 4.72 Hgb 13.8 Hct 42.2 MCV 89.4 MCH 29.2 MCHC 32.7 RDW Std Deviation 43.8 RDW Coeff of Slim 13.4 Plt Count 300 MPV 9.4 Immature Gran % (Auto) 0.100 Neut % (Auto) 62.9 Lymph % (Auto) 29.1 [place] % (Auto) 5.4 Eos % (Auto) 1.8 Baso % (Auto) 0.7 Absolute Neuts (auto) 4.3 Absolute Lymphs (auto) 1.99 Nucleated RBC % 0 Sodium 139 Potassium 3.7 Chloride 104 Carbon Dioxide 25.0 Anion Gap 10 BUN 6 L Creatinine 0.94 Estim Creat Clear Calc 61.92 Est GFR (MDRD) Af Amer 94 Est GFR (MDRD) Non-Af 78 BUN/Creatinine Ratio 6.4 L Glucose 94 Calcium 9.4 Total Bilirubin 0.50 AST 17 ALT 21 Alkaline Phosphatase 54 Total Protein 8.3 H Albumin 4.7 Globulin 3.6 Albumin/Globulin Ratio 1.3 Lipase 89 Serum , Qual NEGATIVE Urine Color Urine Clarity Urine pH Ur Specific [place] Urine Protein Urine Glucose (UA) Urine Ketones Urine Occult Blood Urine Nitrite Urine Bilirubin Urine Urobilinogen Ur Leukocyte Esterase Urine RBC Urine WBC Ur Squamous Epith Cells Urine Bacteria Urine Mucus 12/16/21 05:30 WBC RBC Hgb Hct MCV MCH MCHC RDW Std Deviation RDW Coeff of Slim Plt Count MPV Immature Gran % (Auto) Neut % (Auto) Lymph % (Auto) [place] % (Auto) Eos % (Auto) Baso % (Auto) Absolute Neuts (auto) Absolute Lymphs (auto) Nucleated RBC % Sodium Potassium Chloride Carbon Dioxide Anion Gap BUN Creatinine Estim Creat Clear Calc Est GFR (MDRD) Af Amer Est GFR (MDRD) Non-Af BUN/Creatinine Ratio Glucose Calcium Total Bilirubin AST ALT Alkaline Phosphatase Total Protein Albumin Globulin Albumin/Globulin Ratio Lipase Serum , Qual Urine Color Yellow Urine Clarity Clear Urine pH 7.0 Ur Specific [place] 1.005 Urine Protein 15 H Urine Glucose (UA) Normal Urine Ketones Negative Urine Occult Blood 10 H Urine Nitrite Negative Urine Bilirubin Negative Urine Urobilinogen Normal Ur Leukocyte Esterase Negative Urine RBC 0 SEEN Urine WBC 0 SEEN Ur Squamous Epith Cells 0-5 SEEN Urine Bacteria 0 SEEN Urine Mucus 0 SEEN Radiography Diagnostic Testing: Clinical Impression(s) from Imaging Studies Abdomen/Pelvis CT 12/16/21 03:56 IMPRESSION: 1. Normal appendix. 2. Left adnexa 17 mm cystic structure can be further characterized with pelvic ultrasound. 3. Small free fluid in the pelvis. 4. Mild wall thickening in the bowel, may be due to decompression or enterocolitis. Electronically Signed: Sudhir Rios MD at 4:51 EDT , CT was looked at by me and read by radiology. CT scan showed normal appendix. There was a 17 mm left cystic structure in the adnexa. There is small amount of free fluid. There was some mild bowel wall thickening. Discharge Plan Triage Chief Complaint: Abd Pain ED Provider: Cm Ruiz Dx/Rx/DC Orders Primary Care Provider: Care Physician,Brittany Primary Referrals: Care Physician,No Primary [Primary Care Provider] - Haylee Diaz DO [Med Staff - Active Staff] - 3-5 Days
--- NOTE | 2021-12-16 03:56 | CT_ITS ---
STUDY: CT ABDOMEN AND PELVIS WITH CONTRAST REASON FOR EXAM: Female, 26 years old. RLQ pain RADIATION DOSAGE (If Supplied By Facility): CTDIvol = ( 7.09 ) mGy, DLP = ( 198.18 ) mGycm TECHNIQUE: Transaxial images were obtained from the dome of the diaphragm to the symphysis pubis without oral contrast. IV 100mL Isovue-370 was administered. Sagittal and coronal images were reconstructed. Individualized dose optimization techniques were used for this CT. COMPARISON: CT abdomen and pelvis 08/27/2021 FINDINGS: LOWER CHEST: Partially calcified granuloma measuring 10 mm at left lung base, similar compared to the prior.. LIVER: Normal. GALLBLADDER/BILE DUCTS: Normal. PANCREAS: Normal. SPLEEN: Normal. ADRENAL GLANDS: Normal. KIDNEYS/URETERS/BLADDER: Normal. RETROPERITONEUM/AORTA: Normal. BOWEL/MESENTERY: Mild wall thickening scattered in the colon and small bowel. No bowel dilatation. APPENDIX: Identified and normal. PERITONEUM: Small free fluid in the pelvis.. REPRODUCTIVE ORGANS: 17 mm cystic structure in the left adnexa.. BONES/SOFT TISSUES: No acute abnormality. OTHER: None. CT/Abdomen/Pelvis W IV Cont ONLY IMPRESSION: 1. Normal appendix. 2. Left adnexa 17 mm cystic structure can be further characterized with pelvic ultrasound. 3. Small free fluid in the pelvis. 4. Mild wall thickening in the bowel, may be due to decompression or enterocolitis. Electronically Signed: Sudhir Rios MD at 4:51 EDT ,
[2021-12-16 04:05] LABS: Absolute Lymphocyte Count 1.99 X10^3/uL (0.83-4.51); Absolute Neutrophil Count 4.3 X10^3/uL (2.0-7.7); Basophil# 0.05 X10^3/uL; Basophil% 0.7 % (0-1); Eosinophil# 0.12 X10^3/uL; Eosinophils% 1.8 % (0-5); Hematocrit 42.2 % (37-47); Hemoglobin 13.8 g/dL (12.0-15.0); Lymphocyte # 1.99 X10^3/ul (0.83-4.51); Lymphocyte % 29.1 % (19-41); Mean Corp Hgb Conc 32.7 g/dL (32-36); Mean Corpuscular Hgb 29.2 pg (27.0-32.0); Mean Corpuscular Volume 89.4 fL (81-99); Mean Platelet Vol. 9.4 fl (6.2-12.0); Monocyte# 0.37 X10^3/uL; Monocyte% 5.4 % (0-10); NRBC Flagged by Analyzer 0 % (0-5); Neutrophil # 4.31 X10^3/uL (2.7-7.7); Neutrophil % 62.9 % (47-70); Platelet Count 300 K/mm3 (150-450); RBC Distribution Width CV 13.4 % (11.6-14.6); RBC Distribution Width SD 43.8 fl (35.1-43.9); Red Blood Count 4.72 M/mm3 (4.2-5.4); White Blood Count 6.9 K/mm3 (4.4-11.0)
[2021-12-16] MEDS: Morphine 4 MG/ML Syringe IV (04:16)
[2021-12-16] MEDS: 0.9% Normal Saline 1,000 ML 1000 ML IV (04:16)
[2021-12-16] MEDS: Ondansetron 4 MG/2 ML Vial IV (04:16)
[2021-12-16 04:20] LABS: Internal QC Validated? YES +Cl - CLEAR BKGD; Pregnancy, Serum, hCG Quali. NEGATIVE Negative
[2021-12-16 04:26] LABS: ALB/GLOB Ratio 1.3 RATIO (0.9-2.4); AST(SGOT) 17 U/L (15-37); Alanine Aminotransfer ALT/SGPT 21 U/L (13-56); Albumin, Serum 4.7 g/dL (3.2-5.0); Alkaline Phosphatase 54 U/L (45-117); Anion Gap 10 (5-15); BUN 6 mg/dL (7-18); BUN/Creat Ratio 6.4 RATIO (10-20); Calcium,Total 9.4 mg/dL (8.5-10.1); Chloride 104 mmol/L (98-107); Creatinine, Serum 0.94 mg/dL (0.55-1.02); EST Glomerular Filtration Rate 78 mL/min (>60); Est Glom Filt Rate - Afr Amer 94 mL/min (>60); Estimated Creatinine Clearance 61.92 ml/min; Globulin 3.6 g/dL (2.2-4.2); Glucose 94 mg/dL (74-106); Lipase 89 U/L (73-393); Potassium 3.7 mmol/L (3.5-5.1); Protein, Total 8.3 g/dL (6.4-8.2); Sodium Level 139 mmol/L (136-145)
--- NOTE | 2021-12-16 05:06 | US_ITS ---
STUDY: ULTRASOUND TRANSVAGINAL CLINICAL: Female, 26 years old. ? Torsion, cyst rupture -- PELVIC PAIN -- history of bilateral TUBE REMOVAL 09/16 DUE TO hydrosalpinx TECHNIQUE: Transvaginal COMPARISON: CT dated 12/16/2021 and ultrasound dated 08/27/2021 FINDINGS: Normal uterine size measuring 7.3 cm in maximal craniocaudal dimension. There are no myometrial masses. Normal endometrial thickness measuring 7.6 mm. There are no endometrial masses, and there is no fluid in the endometrial cavity. Normal uterine cervix. Normal right ovary, measuring 4.1 x 2.6 x 4.6 cm. There are multiple follicles without a dominant cyst. Normal left ovary, measuring 4.2 x 1.7 x 4.4 cm. There is a 1.8 x 1.8 x 1.5 cm left ovarian cyst. There are multiple follicles. There is free fluid in the pelvis. US/Transvaginal Non- IMPRESSION: 1.8 x 1.8 x 1.5 cm left ovarian cyst. Electronically Signed: Latosha Tavares MD at 8:07 EDT ,
[2021-12-16 05:34] LABS: Bacteria 0 SEEN /hpf (None Seen); Color, Urine Yellow (Yellow); Glucose, Dipstick Normal (Normal); Ketone-Dipstick Negative (Negative); Leukocyte Esterase-Dipstick Negative /ul (Negative); Mucous, Urine 0 SEEN /hpf (<or=2+); Nitrite-Dipstick Negative (Negative); Occult Blood-Urine 10 /ul (Negative); Protein-Dipstick 15 mg/dl (Negative); Red Blood Cells-Urine 0 SEEN /hpf (0-5); Specific Gravity, Urine 1.005 (1.002-1.030); Urine Bilirubin Dipstick Negative (Negative); Urine Clarity Clear (Clear); Urine Urobilinogen Normal (Normal); White Blood Cells 0 SEEN /hpf (0-5)
[2021-12-16 05:40] LABS: Squamous Epithelial Cells - UA 0-5 SEEN /hpf (5-10)
[2021-12-16 06:35] VITALS: BP 134/80; PULSE 88; RESP 19; O2SAT 98
[2021-12-16 08:42] VITALS: BP 138/77; PULSE 92; RESP 15; O2SAT 98
== END 2021-12-16 08:42 | disposition home or self-care (01) ==
PROVIDERS: Emergency Provider Emergency Medicine; Visit Provider Emergency Medicine
DX: N83.202 Unspecified ovarian cyst, left side (principal); R11.2 Nausea with vomiting, unspecified; F17.210 Nicotine dependence, cigarettes, uncomplicated; R10.2 Pelvic and perineal pain; J45.909 Unspecified asthma, uncomplicated
CPT/HCPCS: 74177; 76830; 80053; 81001; 83690; 84703; 85025; 96361; 96374; 96375; 99282; Q9967; J2405

== ENCOUNTER 2022-01-11 20:46 | Emergency (ER) | payer BC, SELFPAY ==
[2022-01-11 20:47] VITALS: BP 101/89; PULSE 63; RESP 15; TEMP 36.4; O2SAT 100; BMI 16.5
[2022-01-11 20:49] VITALS: BP 101/89; PULSE 63; RESP 15; TEMP 36.4; O2SAT 100
[2022-01-11 21:58] VITALS: BP 114/69; PULSE 50; RESP 16; TEMP 35.8; O2SAT 100
[2022-01-11 22:01] VITALS: BP 115/66; PULSE 51; RESP 18; TEMP 35.9; O2SAT 100
[2022-01-11 22:14] LABS: Mucous, Urine 0 SEEN /hpf (<or=2+); White Blood Cells 0 SEEN /hpf (0-5)
[2022-01-11 22:15] LABS: Color, Urine Yellow (Yellow); Glucose, Dipstick Normal (Normal); Ketone-Dipstick Negative (Negative); Leukocyte Esterase-Dipstick Negative /ul (Negative); Nitrite-Dipstick Negative (Negative); Occult Blood-Urine 50 /ul (Negative); Protein-Dipstick 30 mg/dl (Negative); Specific Gravity, Urine 1.025 (1.002-1.030); Urine Bilirubin Dipstick Negative (Negative); Urine Clarity Clear (Clear); Urine Urobilinogen Normal (Normal)
[2022-01-11] MEDS: 0.9% Normal Saline 1,000 ML 999 ML IV (22:15)
--- NOTE | 2022-01-11 22:15 | ED.VIS.GI ---
HPI HPI - GI History of Present Illness Chief Complaint: Nausea/Vomiting/Diarrhea Narrative Narrative: 26-year-old female past medical history of ovarian cyst rupture presents with nausea, vomiting, and diarrhea that began a few hours ago. She states that she has vomited stomach acid and denies any hematemesis. She feels fevered and chilled. States her abdomen is experiencing crampy pain. She denies any previous abdominal surgeries. She is also having loose stool and diarrhea at the same time. She denies any exacerbating or alleviating factors but states that when she is curled up into a ball in the position it makes her stomach feel better. [facility] Medical History Asthma Hydrosalpinx Migraine Pelvic pain Smoker Syncopal episodes Tubo-ovarian abscess Home Medications dicyclomine 20 mg tablet 20 mg PO TID PRN abdominal cramping #20 tabs 01/12/22 [Rx Last Taken Unknown] promethazine 25 mg tablet 25 mg PO TID PRN nausea and vomiting #12 tabs 01/12/22 [Rx Last Taken Unknown] Allergy/AdvReac Type Severity Reaction Status Date / Time No Known Allergies Allergy Verified 01/11/22 20:50 Social History Smoking Status: Current every day smoker tobacco type: cigarettes substance use type: does not use ROS ROS ED ROS Narrative Constitutional: No fever, no chills. HEENT: No sore throat. No neck pain. No loss of vision. No rhinorrhea. Cardiovascular: No chest pain. No palpitations. No pedal edema. Respiratory: No cough, no shortness of breath. Abdominal: Diffuse crampy abdominal pain. Positive nausea. A few hours of vomiting. No hematemesis. Positive diarrhea, few episodes. Genitourinary: No dysuria. No hematuria. Musculoskeletal: No myalgias. No arthralgias. Neurologic: No headaches. No dizziness. No lightheadedness. Skin: No rash. No change in color. Psychiatric: No depression. No anxiety. EXAM Physical Exam Narrative Exam Narrative: Afebrile. Vital signs noted. HEENT: Normocephalic. Atraumatic. PERRL, EOMI. Neck soft and supple. No point tenderness or step off. Cardiovascular: Regular rate and rhythm. No murmurs, rubs, or gallops appreciated. Respiratory: No tachypnea. Lungs clear to auscultation bilaterally. Gastrointestinal: Abdomen soft, nontender, with normoactive bowel sounds. No rebound or guarding. Neurological: Awake. Alert. Nonfocal, nonlateralizing. Skin: No rash. Normal color. No pallor. Musculoskeletal: No pedal edema. Full range of motion extremities. Const Vital Signs: 01/11/22 20:47 01/11/22 20:49 01/11/22 21:58 Temperature 97.5 F L 97.5 F L 96.5 F L Temperature Source Temporal Temporal Temporal Pulse Rate 63 63 50 L Respiratory Rate 15 15 16 Blood Pressure 101/89 H 101/89 H 114/69 Blood Pressure Mean 93 93 84 Pulse Ox 100 100 100 Oxygen Delivery Method Room Air Room Air Room Air 01/11/22 22:01 01/11/22 22:58 01/11/22 23:05 Temperature 96.6 F L 97.8 F Temperature Source Temporal Oral Pulse Rate 51 L 52 L 63 Respiratory Rate 18 16 20 H Blood Pressure 115/66 114/70 111/34 L Blood Pressure Mean 82 84 59 Pulse Ox 100 100 100 Oxygen Delivery Method Room Air Room Air Room Air 01/12/22 00:05 01/12/22 00:10 Temperature 97.1 F L Temperature Source Temporal Pulse Rate 52 L 47 L Respiratory Rate 19 H 20 H Blood Pressure 116/91 H 116/91 H Blood Pressure Mean 99 99 Pulse Ox 99 99 Oxygen Delivery Method Room Air Room Air MDM MDM MDM Narrative Medical decision making narrative: Nursing protocols were started. She will be bolused normal saline and administered ondansetron. I added a lipase given her vomiting. She will also be given Bentyl. CBC returns with slightly elevated white count of 12.2 which may be demargination from her vomiting. She has a normal hemoglobin of 12.5, hematocrit 39.5, normal platelet count of 338. Electrolyte panel is significant for chloride of 109, slightly elevated but normal BUN and normal creatinine. Serum test is negative. Urinalysis is negative for infection. Upon repeat examination, she states she still having cramping after Bentyl. She also states she is still nauseated. She was administered Reglan. Given her elevated white count continued abdominal pain with nausea I did obtain CT imaging with IV contrast. There is no acute process. At this point in time, upon repeat examination that she feels improved with the abdominal cramping and mildly nauseated. Given her negative work-up here I feel she can be discharged safely home with follow-up. She was given prescriptions for promethazine and dicyclomine and will follow-up with her primary care provider. Return instructions were reviewed. Disposition is discharged home in stable condition. Lab Data Attestation: I reviewed the patient's lab results. Labs: Laboratory Results - last 24 hr 01/11/22 01/11/22 01/11/22 21:10 21:10 21:55 WBC 12.2 H RBC 4.40 Hgb 12.5 Hct 39.5 MCV 89.8 MCH 28.4 MCHC 31.6 L RDW Std Deviation 45.1 H RDW Coeff of Slim 13.7 Plt Count 338 MPV 10.3 Immature Gran % (Auto) 0.300 Neut % (Auto) 70.3 H Lymph % (Auto) 21.7 [place] % (Auto) 5.4 Eos % (Auto) 1.8 Baso % (Auto) 0.5 Absolute Neuts (auto) 8.6 H Absolute Lymphs (auto) 2.64 Nucleated RBC % 0 Sodium 141 Potassium 3.8 Chloride 109 H Carbon Dioxide 25.0 Anion Gap 7 BUN 7 Creatinine 0.84 Estim Creat Clear Calc 66.55 Est GFR (MDRD) Af Amer 107 Est GFR (MDRD) Non-Af 89 BUN/Creatinine Ratio 8.4 L Glucose 133 H Calcium 9.5 Lipase 94 Serum , Qual NEGATIVE Urine Color Urine Clarity Urine pH Ur Specific [place] Urine Protein Urine Glucose (UA) Urine Ketones Urine Occult Blood Urine Nitrite Urine Bilirubin Urine Urobilinogen Ur Leukocyte Esterase Urine RBC Urine WBC Ur Squamous Epith Cells Urine Bacteria Urine Mucus 01/11/22 22:09 WBC RBC Hgb Hct MCV MCH MCHC RDW Std Deviation RDW Coeff of Slim Plt Count MPV Immature Gran % (Auto) Neut % (Auto) Lymph % (Auto) [place] % (Auto) Eos % (Auto) Baso % (Auto) Absolute Neuts (auto) Absolute Lymphs (auto) Nucleated RBC % Sodium Potassium Chloride Carbon Dioxide Anion Gap BUN Creatinine Estim Creat Clear Calc Est GFR (MDRD) Af Amer Est GFR (MDRD) Non-Af BUN/Creatinine Ratio Glucose Calcium Lipase Serum , Qual Urine Color Yellow Urine Clarity Clear Urine pH 5.0 Ur Specific [place] 1.025 Urine Protein 30 H Urine Glucose (UA) Normal Urine Ketones Negative Urine Occult Blood 50 H Urine Nitrite Negative Urine Bilirubin Negative Urine Urobilinogen Normal Ur Leukocyte Esterase Negative Urine RBC 0-5 SEEN Urine WBC 0 SEEN Ur Squamous Epith Cells 0-5 SEEN Urine Bacteria 1+ Urine Mucus 0 SEEN Radiography Diagnostic Testing: Clinical Impression(s) from Imaging Studies Abdomen/Pelvis CT 01/11/22 23:22 IMPRESSION: No acute abnormal finding in the abdomen or pelvis. Electronically Signed: Elder Lopez MD at 0:49 EDT , Discharge Plan Triage Chief Complaint: Nausea/Vomiting/Diarrhea ED Provider: Dax Bowen Dx/Rx/DC Orders Clinical Impression: Nausea vomiting and diarrhea, Abdominal cramping Instructions: ED Abdominal Pain Unkn Cause Fem, ED Vomiting and Diarrhea ... Prescriptions: New promethazine 25 mg tablet 25 mg PO TID PRN (Reason: nausea and vomiting) Qty: 12 0RF dicyclomine 20 mg tablet 20 mg PO TID PRN (Reason: abdominal cramping) Qty: 20 0RF Primary Care Provider: Care Physician,No Primary Referrals: Leslie Sullivan MD [Med Staff - Ed Teacher] - As Needed Care Physician,No Primary [Primary Care Provider] - Disposition Disposition: Home, Self Care
[2022-01-11] MEDS: Ondansetron 4 MG/2 ML Vial IV (22:16)
[2022-01-11 22:18] LABS: Absolute Lymphocyte Count 2.64 X10^3/uL (0.83-4.51); Absolute Neutrophil Count 8.6 X10^3/uL (2.0-7.7); Basophil# 0.06 X10^3/uL; Basophil% 0.5 % (0-1); Eosinophil# 0.22 X10^3/uL; Eosinophils% 1.8 % (0-5); Hematocrit 39.5 % (37-47); Hemoglobin 12.5 g/dL (12.0-15.0); Lymphocyte # 2.64 X10^3/ul (0.83-4.51); Lymphocyte % 21.7 % (19-41); Mean Corp Hgb Conc 31.6 g/dL (32-36); Mean Corpuscular Hgb 28.4 pg (27.0-32.0); Mean Corpuscular Volume 89.8 fL (81-99); Mean Platelet Vol. 10.3 fl (6.2-12.0); Monocyte# 0.66 X10^3/uL; Monocyte% 5.4 % (0-10); NRBC Flagged by Analyzer 0 % (0-5); Neutrophil # 8.55 X10^3/uL (2.7-7.7); Neutrophil % 70.3 % (47-70); Platelet Count 338 K/mm3 (150-450); RBC Distribution Width CV 13.7 % (11.6-14.6); RBC Distribution Width SD 45.1 fl (35.1-43.9); White Blood Count 12.2 K/mm3 (4.4-11.0)
[2022-01-11 22:28] LABS: Bacteria 1+ /hpf (None Seen); Red Blood Cells-Urine 0-5 SEEN /hpf (0-5); Squamous Epithelial Cells - UA 0-5 SEEN /hpf (5-10)
[2022-01-11 22:29] LABS: Internal QC Validated? YES +Cl - CLEAR BKGD; Pregnancy, Serum, hCG Quali. NEGATIVE Negative
[2022-01-11 22:32] LABS: Anion Gap 7 (5-15); BUN 7 mg/dL (7-18); BUN/Creat Ratio 8.4 RATIO (10-20); Calcium,Total 9.5 mg/dL (8.5-10.1); Chloride 109 mmol/L (98-107); Creatinine, Serum 0.84 mg/dL (0.55-1.02); EST Glomerular Filtration Rate 89 mL/min (>60); Est Glom Filt Rate - Afr Amer 107 mL/min (>60); Estimated Creatinine Clearance 66.55 ml/min; Glucose 133 mg/dL (74-106); Lipase 94 U/L (73-393); Potassium 3.8 mmol/L (3.5-5.1); Sodium Level 141 mmol/L (136-145)
[2022-01-11 22:58] VITALS: BP 114/70; PULSE 52; RESP 16; O2SAT 100
[2022-01-11 23:05] VITALS: BP 111/34; PULSE 63; RESP 20; TEMP 36.6; O2SAT 100
[2022-01-11] MEDS: Dicyclomine 20 MG/2 ML Vial IM (23:08)
--- NOTE | 2022-01-11 23:22 | CT_ITS ---
STUDY: CT ABDOMEN AND PELVIS WITH CONTRAST REASON FOR EXAM: Female, 26 years old. Pain; nausea, vomiting, and diarrhea RADIATION DOSAGE (If Supplied By Facility): CTDIvol = ( 5.55 ) mGy, DLP = ( 219.69 ) mGycm TECHNIQUE: Transaxial images were obtained from the dome of the diaphragm to the symphysis pubis without oral contrast. IV 75mL Isovue-370 was administered. Sagittal and coronal images were reconstructed. Individualized dose optimization techniques were used for this CT. COMPARISON: 12/16/2021 FINDINGS: The visualized lung bases are unremarkable. The visualized portions of the heart are within normal limits. Normal liver. Normal gallbladder and extrahepatic biliary system. Normal spleen. Normal pancreas. Normal bilateral adrenal glands. Normal right kidney. Normal left kidney. Normal visualized stomach. Normal small intestine. Normal colon. The appendix is visualized and appears normal. Normal abdominal aorta. Normal inferior vena cava. Normal retroperitoneum. Normal urinary bladder. Normal visualized uterus. Small free pelvic fluid is likely physiologic. Normal abdominal wall. Normal thoracolumbar vertebral alignment. CT/Abdomen/Pelvis W IV Cont ONLY IMPRESSION: No acute abnormal finding in the abdomen or pelvis. Electronically Signed: Elder Lopez MD at 0:49 EDT ,
[2022-01-11] MEDS: Metoclopramide 10 MG/2 ML Vial IV (23:50)
[2022-01-12 00:05] VITALS: BP 116/91; PULSE 52; RESP 19; O2SAT 99
[2022-01-12 00:10] VITALS: BP 116/91; PULSE 47; RESP 20; TEMP 36.2; O2SAT 99
[2022-01-12 01:06] VITALS: BP 114/66; PULSE 84; RESP 16
== END 2022-01-12 01:07 | disposition home or self-care (01) ==
PROVIDERS: Emergency Provider Emergency Medicine; Visit Provider Emergency Medicine
DX: R11.2 Nausea with vomiting, unspecified (principal); F17.210 Nicotine dependence, cigarettes, uncomplicated; R10.9 Unspecified abdominal pain; R19.7 Diarrhea, unspecified; J45.909 Unspecified asthma, uncomplicated
CPT/HCPCS: 74177; 80048; 81001; 83690; 84703; 85025; 96361; 96372; 96374; 96375; 99283; J7030; Q9967; A4216; J2405

== ENCOUNTER → 2022-01-29 | Outpatient (CLI) | payer BC, SELFPAY ==
[2022-01-29 11:24] LABS: Insulin 15.9 mU/L (2.6-37.6); Vitamin D,25 Hydroxy 15.6 ng/mL
[2022-01-29 11:29] LABS: Cholesterol 129 mg/dL (200); Free T3 2.7 pg/mL (2.18-3.98); High Density Lipoprotein 52 mg/dL; T4 Free Direct 1.11 ng/dL (0.76-1.46); Thyroid Stim Hormone (TSH) 0.39 uIU/mL (0.358-3.74); Triglycerides 66 mg/dL; Very Low Density Lipoprotein 13 mg/dL (5-40)
== END | disposition home or self-care (01) ==
LOC: LAB 10:17
PROVIDERS: PCP Internal Medicine; Visit Provider Internal Medicine
DX: R63.4 Abnormal weight loss (principal); R63.0 Anorexia; E16.2 Hypoglycemia, unspecified
CPT/HCPCS: 36415; 80061; 82306; 83525; 84439; 84443; 84481

== ENCOUNTER 2022-02-23 23:04 | Emergency (ER) | payer BC, SELFPAY ==
[2022-02-23 23:05] VITALS: BP 129/107; PULSE 52; RESP 16; TEMP 35.9; O2SAT 100; BMI 16.8
--- NOTE | 2022-02-23 23:36 | EDS_ITS ---
HPI HPI - GI History of Present Illness Chief Complaint: Abd Pain Informant: patient Abdominal Pain/Flank Pain Onset: Yesterday Context: Gradual Onset Timing: Continuous Quality: Aching and Cramping Location: Diffuse Current Severity: Severe Maximum Severity: Severe Worsened by: - (vomiting) Relieved by: Nothing Nausea/Vomiting/Emesis GI Symptom: Positive for Nausea and Vomiting Onset: Yesterday Quality: Positive for Nonbilious; Negative for Blood streaks Severity: Severe Diarrhea/Melena/Hematochezia GI Symptom: Positive for Diarrhea; Negative for Melena or Hematochezia Onset: Yesterday Stool Quality: Positive for Watery; Negative for Black, Maroon or BRB per rectum Severity: Severe Associated Symptoms Associated Symptoms: Negative for Dysuria, Frequency or Hematuria Narrative Narrative: Patient says since yesterday she has had diffuse abdominal pain, vomiting, diarrhea. She cannot keep anything down. She states she has had the symptoms approximately monthly, and can remember how many years this has been going on. She states she has had GI issues all her life, and she is finally set to get a scope in April with Dr. Mims, [facility]. She states this is a severe episode of what ever this is. When asked about the quality of her abdominal pain, she states like rotting from the inside and eventually settles on crampy-type pain. She denies any new symptoms or fever/chills or known sick contacts. She states normally when she is not having pain, her stools fluctuate between soft and normal, and watery diarrhea. Never blood, never mucus, never melena. Rarely constipated. [facility] Medical History Anorexia Asthma Back problem Cystic lump of breast H/O emotional problems Headache, classical migraine Hydrosalpinx Migraine Nausea and vomiting Pelvic pain Single live Smoker Syncopal episodes Tubo-ovarian abscess Home Medications dicyclomine 10 mg capsule 20 mg PO Q6H PRN PRN abdominal discomfort #30 CAPSULES 02/24/22 [Rx Last Taken Unknown] metoclopramide HCl 10 mg tablet 10 mg PO Q6H PRN nausea and vomiting #20 tabs 02/24/22 [Rx Last Taken Unknown] Allergy/AdvReac Type Severity Reaction Status Date / Time No Known Allergies Allergy Verified 02/23/22 23:04 Family History (Updated 01/27/22 @ 10:37 by Maryse Ramirez) Sister Spina bifida Cancer ovarian Suicide attempt Father STD (male) Mother Suicide attempt Other Alcoholism Anemia Anxiety Arthritis Asthma Autoimmune disorder Blood clot in vein Depression Diabetes FH: heart attack Heart disease Hypertension Maternal blood transfusion Surgical History (Updated 01/27/22 @ 10:29 by Maryse Ramirez) H/O tubal ligation Social History Smoking Status: Current every day smoker tobacco type: cigarettes substance use type: does not use ROS ROS ED Constitutional Constitutional ED: Denies chills or fever(s) Eyes Eyes: Denies change in vision or diplopia ENT ENT ED: Denies rhinorrhea or sore throat Cardiovascular Cardiovascular: Denies chest pain or palpitations Respiratory/Chest Respiratory/Chest: Denies cough or dyspnea Gastrointestinal Gastrointestinal: Reports abdominal pain, diarrhea, nausea and vomiting Genitourinary Genitourinary ED: Denies dysuria or hematuria Musculoskeletal Musculoskeletal: Denies back pain or neck pain Integumentary Denies abscess or rash Neurologic Neurologic: Denies headache(s), paresthesias or weakness Psychiatric Psychiatric: Reports anxiety; Denies suicidal thoughts EXAM Physical Exam Const Vital Signs: 02/23/22 23:05 02/24/22 01:04 Temperature 96.7 F L Temperature Source Temporal Pulse Rate 52 L 60 Respiratory Rate 16 15 Blood Pressure 129/107 H 97/59 L Blood Pressure Mean 114 71 Pulse Ox 100 97 Oxygen Delivery Method Room Air Room Air Positive well nourished and well developed Constitutional Narrative: In position, moaning in painful distress General Appearance ED: well developed HEENT Reports moist mucous membranes normocephalic and atraumatic Eyes PERRL and EOMs intact bilaterally Neck full ROM and supple Resp normal respiratory effort and clear to auscultation bilaterally Cardio regular rate, regular rhythm and no murmurs GI non-distended GI Narrative: Patient does not allow abdominal exam Auscultation: normoactive bowel sounds Palpation: soft Back/Spine no CVA tenderness General Back: other FROM Extremity normal to inspection General Extremety ED: Negative for edema, pulses abnormal or tenderness General Extremity: Negative for edema or pulses abnormal Neuro oriented x3, CN's II-XII intact bilaterally and no sensory deficits noted Sensorium / Orientation: awake and alert Motor Exam: strength 5/5 throughout Psych Mood & Affect: anxious and tearful Skin no rashes or lesions noted and no wounds MDM MDM MDM Narrative Medical decision making narrative: Labs show mild nonspecific leukocytosis, otherwise normal with a negative test. She was treated here with morphine, Reglan, Toradol, Bentyl. On reevaluation she feels much better her pain is gone, I examined her abdomen. Soft, nontender nondistended with normal bowel sounds present. She has had prescription for dicyclomine in the past which has helped these symptoms in the past, so I am giving her prescription for more since she is out of it, as well as Reglan to use as needed, promethazine has made her feel worse in the past. She is advised to follow-up and she is comfortable with that plan. Of note, she has a history of PID, she has no current vaginal discharge, and with her abdominal pain responding to GI medications and a benign exam now I do not marshall spect she has acute PID. Additionally, given the chronicity of symptoms and recent CT that the patient had about 1.5 months ago when she was here for similar symptoms apparently that was unremarkable, I do not think she needs emergent imaging at this time. Lab Data Attestation: I reviewed the patient's lab results. Labs: Laboratory Results - last 24 hr 02/23/22 02/23/22 02/23/22 23:47 23:47 23:47 WBC 13.0 H RBC 4.64 Hgb 13.1 Hct 41.0 MCV 88.4 MCH 28.2 MCHC 32.0 RDW Std Deviation 44.0 H RDW Coeff of Slim 13.6 Plt Count 340 MPV 9.0 Immature Gran % (Auto) 0.400 Neut % (Auto) 74.0 H Lymph % (Auto) 18.7 L [place] % (Auto) 4.2 Eos % (Auto) 2.1 Baso % (Auto) 0.6 Absolute Neuts (auto) 9.6 H Absolute Lymphs (auto) 2.44 Nucleated RBC % 0 Sodium 140 Potassium 3.8 Chloride 108 H Carbon Dioxide 27.0 Anion Gap 5 BUN 8 Creatinine 0.84 Estim Creat Clear Calc 70.25 Est GFR (MDRD) Af Amer 106 Est GFR (MDRD) Non-Af 88 BUN/Creatinine Ratio 9.5 L Glucose 125 H Calcium 9.0 Total Bilirubin 0.30 AST 18 ALT 24 Alkaline Phosphatase 53 Total Protein 7.3 Albumin 3.9 Globulin 3.4 Albumin/Globulin Ratio 1.1 Lipase 98 Serum , Qual NEGATIVE Discharge Plan Triage Chief Complaint: Abd Pain ED Provider: Eugene Bui Dx/Rx/DC Orders Clinical Impression: Abdominal pain, diffuse, Nausea, vomiting and diarrhea Instructions: Abdominal Pain, ED Full Liquid Diet Prescriptions: New dicyclomine 10 mg capsule 20 mg PO Q6H PRN PRN (Reason: abdominal discomfort) Qty: 30 0RF metoclopramide HCl [metoclopramide HCl] 10 mg tablet 10 mg PO Q6H PRN (Reason: nausea and vomiting) Qty: 20 0RF Primary Care Provider: Lashell Han Referrals: Lashell Han MD [Primary Care Provider] - 3-5 Days if not improving Activity Restrictions/Additional Instructions: If still having symptoms tomorrow, consider full liquid diet for 48 hours. Disposition Disposition: Home, Self Care
[2022-02-23 23:54] LABS: Absolute Lymphocyte Count 2.44 X10^3/uL (0.83-4.51); Absolute Neutrophil Count 9.6 X10^3/uL (2.0-7.7); Basophil# 0.08 X10^3/uL; Basophil% 0.6 % (0-1); Eosinophil# 0.27 X10^3/uL; Eosinophils% 2.1 % (0-5); Hemoglobin 13.1 g/dL (12.0-15.0); Lymphocyte # 2.44 X10^3/ul (0.83-4.51); Lymphocyte % 18.7 % (19-41); Mean Corpuscular Hgb 28.2 pg (27.0-32.0); Mean Corpuscular Volume 88.4 fL (81-99); Monocyte# 0.55 X10^3/uL; Monocyte% 4.2 % (0-10); NRBC Flagged by Analyzer 0 % (0-5); Neutrophil # 9.64 X10^3/uL (2.7-7.7); Platelet Count 340 K/mm3 (150-450); RBC Distribution Width CV 13.6 % (11.6-14.6); Red Blood Count 4.64 M/mm3 (4.2-5.4)
[2022-02-23] MEDS: Metoclopramide 10 MG/2 ML Vial 5 MG IV (23:55)
[2022-02-23] MEDS: Ketorolac 30 MG/ML Syringe IV (23:57)
[2022-02-24] MEDS: Morphine 4 MG/ML Syringe IV
[2022-02-24] MEDS: Dicyclomine 20 MG/2 ML Vial IM (00:02)
[2022-02-24 00:06] LABS: Internal QC Validated? YES +Cl - CLEAR BKGD; Pregnancy, Serum, hCG Quali. NEGATIVE Negative
[2022-02-24] MEDS: 0.9% Normal Saline 1,000 ML 1000 ML IV (00:09)
[2022-02-24 00:13] LABS: ALB/GLOB Ratio 1.1 RATIO (0.9-2.4); AST(SGOT) 18 U/L (15-37); Alanine Aminotransfer ALT/SGPT 24 U/L (13-56); Albumin, Serum 3.9 g/dL (3.2-5.0); Alkaline Phosphatase 53 U/L (45-117); Anion Gap 5 (5-15); BUN 8 mg/dL (7-18); BUN/Creat Ratio 9.5 RATIO (10-20); Chloride 108 mmol/L (98-107); Creatinine, Serum 0.84 mg/dL (0.55-1.02); EST Glomerular Filtration Rate 88 mL/min (>60); Est Glom Filt Rate - Afr Amer 106 mL/min (>60); Estimated Creatinine Clearance 70.25 ml/min; Globulin 3.4 g/dL (2.2-4.2); Glucose 125 mg/dL (74-106); Lipase 98 U/L (73-393); Potassium 3.8 mmol/L (3.5-5.1); Protein, Total 7.3 g/dL (6.4-8.2); Sodium Level 140 mmol/L (136-145)
[2022-02-24 01:04] VITALS: BP 97/59; PULSE 60; RESP 15; O2SAT 97
== END 2022-02-24 01:57 | disposition home or self-care (01) ==
PROVIDERS: Emergency Provider Emergency Medicine; PCP Internal Medicine; Visit Provider Emergency Medicine
DX: R10.84 Generalized abdominal pain (principal); R11.2 Nausea with vomiting, unspecified; F17.210 Nicotine dependence, cigarettes, uncomplicated; R19.7 Diarrhea, unspecified; F41.9 Anxiety disorder, unspecified
CPT/HCPCS: 80053; 83690; 84703; 85025; 96361; 96372; 96374; 96375; 99283; J7030; A4216

== ENCOUNTER → 2022-03-12 | Outpatient (CLI) | payer BC, SELFPAY ==
--- NOTE | 2022-03-12 12:54 | NM_ITS ---
CLINICAL: 26-year-old female with history of chronic nausea, abdominal pain. SEMI-SOLID PHASE 99m Tc SULFUR COLLOID GASTRIC EMPTYING STUDY COMPARISON: CT of the abdomen-pelvis report 01/11/2022 FINDINGS: The patient was administered 1.0 mCi of 99m Tc sulfur colloid mixed with oatmeal and consumed per os. Image acquisitions in the anterior-posterior projections were obtained for 60 minutes. There is prompt visualization of the stomach. There is no gastroesophageal reflux identified. Minimal emptying of the radiopharmaceutical is defined. The T ? linear fit was calculated to be > 300 minutes, (Normal: 12-56 minutes). NM/Gastric Emptying Study IMPRESSION: 1. ABNORMAL 99m Tc sulfur colloid semi-solid phase (oatmeal) gastric emptying imaging examination. A. There is markedly delayed semi-solid phase gastric emptying compared to normal controls. (Gilberto et al, J Nucl Med Tech 38: 186, 2010). Electronically Signed: Maikel Walls, at 10:50 EST ,
== END | disposition home or self-care (01) ==
PROVIDERS: PCP Internal Medicine; Visit Provider Internal Medicine
DX: R10.84 Generalized abdominal pain (principal); R11.2 Nausea with vomiting, unspecified; R19.7 Diarrhea, unspecified
CPT/HCPCS: 78264; A9541

== ENCOUNTER → 2022-05-07 | Outpatient (CLI) | payer BC, SELFPAY ==
[2022-05-07 12:04] LABS: Vitamin B12 348 pg/mL (211-911); Vitamin D,25 Hydroxy 13.8 ng/mL
[2022-05-07 12:18] LABS: ALB/GLOB Ratio 1.2 RATIO (0.9-2.4); AST(SGOT) 15 U/L (15-37); Alanine Aminotransfer ALT/SGPT 17 U/L (13-56); Albumin, Serum 4.1 g/dL (3.2-5.0); Alkaline Phosphatase 51 U/L (45-117); Anion Gap 5 (5-15); BUN 7 mg/dL (7-18); BUN/Creat Ratio 8.2 RATIO (10-20); CRP < 2.90 mg/L (0.0-3.0); Calcium,Total 8.9 mg/dL (8.5-10.1); Chloride 109 mmol/L (98-107); Creatinine, Serum 0.85 mg/dL (0.55-1.02); EST Glomerular Filtration Rate 87 mL/min (>60); Est Glom Filt Rate - Afr Amer 105 mL/min (>60); Ferritin 7 ng/mL (8-252); Free T3 2.8 pg/mL (2.18-3.98); Globulin 3.3 g/dL (2.2-4.2); Glucose 91 mg/dL (74-106); LDH 157 U/L (84-246); Potassium 3.4 mmol/L (3.5-5.1); Protein, Total 7.4 g/dL (6.4-8.2); Sodium Level 141 mmol/L (136-145); T4 Free Direct 1.05 ng/dL (0.76-1.46); Thyroid Stim Hormone (TSH) 1.39 uIU/mL (0.358-3.74)
[2022-05-07 12:19] LABS: Erythrocyte Sedimentation Rate 2 mm/hr (0-30)
[2022-05-07 12:21] LABS: Absolute Lymphocyte Count 1.95 X10^3/uL (0.83-4.51); Absolute Neutrophil Count 5.2 X10^3/uL (2.0-7.7); Basophil# 0.03 X10^3/uL; Basophil% 0.4 % (0-1); Eosinophil# 0.18 X10^3/uL; Eosinophils% 2.3 % (0-5); Hematocrit 40.5 % (37-47); Hemoglobin 12.8 g/dL (12.0-15.0); Lymphocyte # 1.95 X10^3/ul (0.83-4.51); Lymphocyte % 25.1 % (19-41); Mean Corp Hgb Conc 31.6 g/dL (32-36); Mean Corpuscular Hgb 28.3 pg (27.0-32.0); Mean Corpuscular Volume 89.4 fL (81-99); Mean Platelet Vol. 10.3 fl (6.2-12.0); Monocyte# 0.38 X10^3/uL; Monocyte% 4.9 % (0-10); NRBC Flagged by Analyzer 0 % (0-5); Neutrophil # 5.22 X10^3/uL (2.7-7.7); Platelet Count 278 K/mm3 (150-450); RBC Distribution Width CV 14.1 % (11.6-14.6); RBC Distribution Width SD 45.4 fl (35.1-43.9); Red Blood Count 4.53 M/mm3 (4.2-5.4); White Blood Count 7.8 K/mm3 (4.4-11.0)
[2022-05-10 13:10] LABS: Anti-Centromere B Ab <0.2 AI (0.0-0.9); Anti-Chromatin <0.2 AI (0.0-0.9); Anti-Jo <0.2 AI (0.0-0.9); Anti-Scleroderma-70 AB <0.2 AI (0.0-0.9); RNP Ab <0.2 AI (0.0-0.9); SJOGREN'S Anti-SS-A test < 0.2 AI (0.0-0.9); SJOGREN'S Anti-SS-B test < 0.2 AI (0.0-0.9); Smith Ab <0.2 AI (0.0-0.9)
[2022-05-10 16:09] LABS: Endomysial Antibody IgA Negative (Negative)
[2022-05-10 23:15] LABS: Anti-dsDNA Ab 1 IU/mL (0-9); Vitamin D 1,25-Dihydroxy 50.6 pg/mL (24.8-81.5)
[2022-05-10 23:21] LABS: Immunoglobulin A 137 mg/dL (87-352); t-Transglutaminase IgA <2 U/mL (0-3)
[2022-05-14 10:08] LABS: Albumin 4.2 g/dL (2.9-4.4); Alpha-1-Globulins 0.3 g/dL (0.0-0.4); Alpha-2-Globulins 0.8 g/dL (0.4-1.0); Cytoplasmic Ab (C-ANCA) <1:20 titer (Neg:<1:20); HEPATITIS B SURFACE AG Negative (Negative); Hep C Antibodies <0.1 s/co ratio (0.0-0.9); Hepatitis A IgM Antibody Negative (Negative); Hepatitis B Core AB IgM Negative (Negative); Immunoglobulin A 136 mg/dL (87-352); Immunoglobulin E 154 IU/mL (6-495); Immunoglobulin G 850 mg/dL (586-1602); Immunoglobulin M 99 mg/dL (26-217); PROEL- TOTAL PROTEIN 7.1 g/dL (6.0-8.5)
[2022-05-14 17:20] LABS: Ceruloplasmin 21.3 mg/dL (19.0-39.0); Perinuclear Ab (P-ANCA) <1:20 titer (Neg:<1:20)
== END | disposition home or self-care (01) ==
LOC: LAB 10:32
PROVIDERS: PCP Internal Medicine; Referring Provider Internal Medicine Gastroenterology; Visit Provider Internal Medicine Gastroenterology
DX: K31.84 Gastroparesis (principal); R10.9 Unspecified abdominal pain
CPT/HCPCS: 36415; 80053; 80074; 82306; 82390; 82607; 82652; 82728; 82784; 82785; 83516; 83615; 84165; 84439; 84443; 84481; 85025; 85652; 86140; 86225; 86235; 86255; 86256; 86334

== ENCOUNTER 2022-05-11 09:27 | Emergency (ER) | payer BC, SELFPAY ==
[2022-05-11 09:28] VITALS: BP 118/93; PULSE 113; RESP 16; TEMP 36.8; O2SAT 100; BMI 17.4
--- NOTE | 2022-05-11 09:51 | EDS_ITS ---
HPI History of Present Illness Chief Complaint: General Illness Informant: patient Onset/Context/Timing Onset: Days Context: Gradual Onset Timing: Continuous Current Severity: Mild Maximum Severity: Mild Narrative Narrative: 27-year-old female history of anorexia. States she has had GI problems for years. She is undergoing a work-up. She has a pending scope. States last Tuesday she has had nausea hot flashes and a sore throat. Also at times breaks out in a cold sweat. She denies any recent weight changes that she is constantly underweight and weighs around 93 pounds. States last Tuesday while at work had similar symptoms and had to go home. She has a history of abdominal cramping that do not have a specific source. She said she has had decreased p.o. intake over the last 5 days but is able to hold down fluids. She denies any diarrhea or constipation. No dysuria. States her last menstrual period was 1225 and they are often irregular. States that she has had bilateral tubes resected due to a tubo-ovarian abscess. Prior similar symptoms: Yes Recent Illness/Hospitalization: No PFSH PFSH Medical History Anorexia Asthma Back problem Cystic lump of breast H/O emotional problems Headache, classical migraine Hydrosalpinx Migraine Nausea and vomiting Pelvic pain Single live Smoker Syncopal episodes Tubo-ovarian abscess Home Medications dicyclomine 20 mg tablet 20 mg PO TID PRN abdominal cramping #30 tabs 02/25/22 [Rx Last Taken Unknown] metoclopramide HCl 10 mg tablet 10 mg PO TID nausea and vomiting #90 tabs 05/07/22 [Rx Last Taken Unknown] amoxicillin 500 mg capsule 500 mg PO TID 10 days #30 caps 05/11/22 [Rx Last Taken Unknown] Allergy/AdvReac Type Severity Reaction Status Date / Time No Known Allergies Allergy Verified 05/11/22 09:30 Family History Sister Spina bifida Cancer ovarian Suicide attempt Father STD (male) Mother Suicide attempt Other Alcoholism Anemia Anxiety Arthritis Asthma Autoimmune disorder Blood clot in vein Depression Diabetes FH: heart attack Heart disease Hypertension Maternal blood transfusion Surgical History H/O tubal ligation Social History Smoking Status: Current every day smoker tobacco type: cigarettes substance use type: does not use ROS ROS ED ROS Narrative Nausea, hot flashes with abdominal cramping. Review of Systems ROS Unobtainable: Denies due to encephalopathy Constitutional Constitutional ED: Reports fever(s) and subjective; Denies chills Eyes Eyes: Denies blurry vision ENT ENT ED: Reports sore throat; Denies ear pain or rhinorrhea Cardiovascular Cardiovascular: Denies chest pain Respiratory/Chest Respiratory/Chest: Denies cough or dyspnea Gastrointestinal Gastrointestinal: Reports abdominal pain and nausea; Denies constipation, diarrhea, melena or vomiting Genitourinary Genitourinary ED: Denies dysuria or hematuria Musculoskeletal Musculoskeletal: Denies arthralgias Integumentary Denies abscess Neurologic Neurologic: Denies headache(s) Psychiatric Psychiatric: Denies anxiety Endocrine Endocrinology: Denies cold intolerance Hematologic/Lymphatic Hematologic/Lymphatic: Reports none Allergic/Immunologic Allergic/Immunologic ED: Denies mouth swelling, tongue swelling or urticaria EXAM Physical Exam Narrative Exam Narrative: 27-year-old female curled up in the position lying on her knees as I enter the room. Emotionally upset. Vital signs are stable. She is afebrile. Pulse ox 100% on room air. She does not look septic or toxic. H EENT exam mildly dry mucous membranes. Posterior pharynx erythematous. No exudate. No trouble swallowing or breathing. Neck nontender. Slight cervical lymphadenopathy on the right. Trachea midline. Lungs clear to auscultation bilaterally. Heart tachycardic rate about 110 no murmur. Abdomen soft, nondistended normal bowel sounds no peritoneal signs. No localizing tenderness. Moving all 4 extremities. Nontender without edema back nontender. Clinically she is underweight. Neurologically she is awake and alert with no focal motor deficits. Const Vital Signs: 05/11/22 09:28 05/11/22 09:36 Temperature 98.2 F Temperature Source Temporal Pulse Rate 113 H Respiratory Rate 16 Respiratory Effort Normal Non-Labored Respiratory Pattern Normal Blood Pressure 118/93 H Blood Pressure Mean 101 Pulse Ox 100 Oxygen Delivery Method Room Air Positive well nourished and well developed; Negative for obese, cachectic, contractures or unkempt General Appearance ED: well developed and NAD; Negative for unkempt, cachectic, contractures, cyanotic or diaphoretic Nutritional Appearance: Negative for cachectic or obese HEENT Reports dry mucous membranes HEENT Narrative: Posterior pharyngeal erythema. Negative for trauma or tenderness Mouth ED: Yes dry mucous membranes Mouth: dry mucous membranes Eyes PERRL and EOMs intact bilaterally General Eye ED: Negative for pale conjunctiva or scleral icterus Neck No no lymphadenopathy and supple Neck Narrative: Right anterior chain lymphadenopathy. Chest Wall inspection of chest normal and palpation of chest normal Chest: Negative for other Resp normal respiratory effort and clear to auscultation bilaterally Effort and Inspection: Negative for retractions Auscultation: Negative for rales, rhonchi or wheezes Cardio regular rhythm, S1 normal heart sound, S2 normal heart sound and no murmurs; Negative for regular rate Rate: tachycardic GI normal to inspection, nondistended, normoactive bowel sounds, non-tender, non- distended and no masses; Negative for hepatosplenomegaly Inspection: Negative for abdominal distention Auscultation: normoactive bowel sounds Palpation: soft; Negative for tender or guarding Bladder / Kidney Exam: No other Back/Spine no CVA tenderness General Back: Negative for CVA tenderness Cervical Spine: Negative for cervical spine tenderness Thoracic Spine / Upper Back: Negative for thoracic spinal tenderness Lumbar Spine / Lower Back: Negative for lumbar spinal tenderness Extremity normal to inspection General Extremety ED: Negative for edema or tenderness General Extremity: Negative for edema Neuro oriented x3, CN's II-XII intact bilaterally and no sensory deficits noted Sensorium / Orientation: alert; Negative for orientation impaired or lethargic Motor Exam: strength 5/5 throughout Psych mental status grossly normal Appearance: Negative for unkempt Attitude: No agitated Mood & Affect: anxious; Negative for depressed Skin no rashes or lesions noted and no wounds Rashes: No rashes noted Trauma: Negative for abrasion Wounds: Negative for wounds noted MDM MDM MDM Narrative Medical decision making narrative: 27-year-old female with a history of GI problems. Complaining of nausea, decreased appetite and abdominal cramping. Clinically she looks mildly dehydrated. She will be treated with IV fluids. Zofran for her nausea. Screening labs. At this time I do not think she needs imaging she has had CAT scans in the past of her abdomen and pelvis. I did review her old records and labs. Repeat exam at 10:52 AM patient doing well. We went over her test results. She will be given dose amoxicillin here. Started on amoxicillin 3 times daily for 10 days. Lab Data Attestation: I reviewed the patient's lab results. Lab results narrative: CBC shows a white count of 12. H&H 13.1 and 38. Platelets 179. Electrolytes sodium 134. Potassium 3.1 And 9 normal BUN and creatinine liver enzymes unremarkable glucose 117. Lipase 67. Rapid strep is positive consistent with strep throat. Labs: Laboratory Results - last 24 hr 05/11/22 05/11/22 10:00 10:00 WBC 12.0 H RBC 4.52 Hgb 13.1 Hct 38.7 MCV 85.6 MCH 29.0 MCHC 33.9 D RDW Std Deviation 42.9 RDW Coeff of Slim 13.7 Plt Count 179 MPV 10.3 Immature Gran % (Auto) 0.400 Neut % (Auto) 79.4 H Lymph % (Auto) 10.6 L [place] % (Auto) 9.2 Eos % (Auto) 0.1 Baso % (Auto) 0.3 Absolute Neuts (auto) 9.5 H Absolute Lymphs (auto) 1.27 Nucleated RBC % 0 Sodium 134 L Potassium 3.1 L Chloride 100 Carbon Dioxide 25.0 Anion Gap 9 BUN 7 Creatinine 0.97 Estim Creat Clear Calc 60.31 Est GFR (MDRD) Af Amer 90 Est GFR (MDRD) Non-Af 74 BUN/Creatinine Ratio 7.2 L Glucose 117 H Calcium 9.1 Total Bilirubin 0.40 AST 10 L ALT 15 Alkaline Phosphatase 60 Total Protein 7.7 Albumin 3.7 Globulin 4.0 Albumin/Globulin Ratio 0.9 Lipase 67 L Discharge Plan Triage Chief Complaint: General Illness ED Provider: Kapil Mares Dx/Rx/DC Orders Clinical Impression: Strep sore throat Instructions: ED Pharyngitis, Strep (Confirmed) Prescriptions: New amoxicillin 500 mg capsule 500 mg PO TID 10 Days Qty: 30 0RF No Action metoclopramide HCl 10 mg tablet 10 mg PO TID Qty: 90 2RF Rx Instructions: one tab thirty minutes prior to each meal dicyclomine 20 mg tablet 20 mg PO TID PRN (Reason: abdominal cramping) Qty: 30 5RF Primary Care Provider: Lashell Han Referrals: Lashell Han MD [Primary Care Provider] - Activity Restrictions/Additional Instructions: Plenty of fluids and rest. Warm salt water gargling for your sore throat. You have strep throat. Tylenol and Motrin for pain, fever and body aches. The antibiotic amoxicillin 1 pill 3 times a day till gone. Follow-up with your doctor if not improving or return if worse. Disposition Disposition: Home, Self Care
[2022-05-11] MEDS: Ondansetron 4 MG/2 ML Vial IV (10:00)
[2022-05-11] MEDS: 0.9% Normal Saline 1,000 ML 1000 ML IV (10:00)
[2022-05-11 10:10] LABS: Absolute Lymphocyte Count 1.27 X10^3/uL (0.83-4.51); Absolute Neutrophil Count 9.5 X10^3/uL (2.0-7.7); Basophil# 0.04 X10^3/uL; Basophil% 0.3 % (0-1); Eosinophil# 0.01 X10^3/uL; Eosinophils% 0.1 % (0-5); Hematocrit 38.7 % (37-47); Hemoglobin 13.1 g/dL (12.0-15.0); Lymphocyte # 1.27 X10^3/ul (0.83-4.51); Lymphocyte % 10.6 % (19-41); Mean Corp Hgb Conc 33.9 g/dL (32-36); Mean Corpuscular Volume 85.6 fL (81-99); Mean Platelet Vol. 10.3 fl (6.2-12.0); Monocyte% 9.2 % (0-10); NRBC Flagged by Analyzer 0 % (0-5); Neutrophil # 9.53 X10^3/uL (2.7-7.7); Neutrophil % 79.4 % (47-70); Platelet Count 179 K/mm3 (150-450); RBC Distribution Width CV 13.7 % (11.6-14.6); RBC Distribution Width SD 42.9 fl (35.1-43.9); Red Blood Count 4.52 M/mm3 (4.2-5.4)
[2022-05-11 10:25] LABS: ALB/GLOB Ratio 0.9 RATIO (0.9-2.4); AST(SGOT) 10 U/L (15-37); Alanine Aminotransfer ALT/SGPT 15 U/L (13-56); Albumin, Serum 3.7 g/dL (3.2-5.0); Alkaline Phosphatase 60 U/L (45-117); Anion Gap 9 (5-15); BUN 7 mg/dL (7-18); BUN/Creat Ratio 7.2 RATIO (10-20); Calcium,Total 9.1 mg/dL (8.5-10.1); Chloride 100 mmol/L (98-107); Creatinine, Serum 0.97 mg/dL (0.55-1.02); EST Glomerular Filtration Rate 74 mL/min (>60); Est Glom Filt Rate - Afr Amer 90 mL/min (>60); Estimated Creatinine Clearance 60.31 ml/min; Glucose 117 mg/dL (74-106); Lipase 67 U/L (73-393); Potassium 3.1 mmol/L (3.5-5.1); Protein, Total 7.7 g/dL (6.4-8.2); Sodium Level 134 mmol/L (136-145)
[2022-05-11] MEDS: AMOXICILLIN 500 MG CAPSULE PO (11:02)
[2022-05-11 11:41] VITALS: RESP 16
== END 2022-05-11 11:44 | disposition home or self-care (01) ==
PROVIDERS: Emergency Provider Emergency Medicine; PCP Internal Medicine; Visit Provider Emergency Medicine
DX: J02.0 Streptococcal pharyngitis (principal); F17.210 Nicotine dependence, cigarettes, uncomplicated; R10.9 Unspecified abdominal pain; R11.0 Nausea
CPT/HCPCS: 80053; 83690; 85025; 87880; 96361; 96374; 99284; J7030; A4216; J2405

== ENCOUNTER 2022-07-15 07:28 | Day surgery (SDC) | payer BC, SELFPAY ==
[2022-07-15] VITALS (7 sets, daily range): BP systolic 95–104; BP diastolic 60–66; PULSE 62–76; RESP 15–16; TEMP 36.4–36.9; O2SAT 99–100; BMI 16.9
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
[2022-07-15] MEDS: Lactated Ringers 1,000 ML 15 ML IV (08:09)
--- NOTE | 2022-07-15 08:30 | EGD_PTH ---
PATIENT: LINSEY MCKINNON LOC: EN U#:[id number] AGE/SX: 27/F ROOM: RE07/15/[address]: Dr. Elfego Mims DO : 1995 BED: DIS: 07/15/2022 SPEC #: [id number] RECD: 07/15/22 09:02 STATUS: OTF RELance #: [id number] NIEVES: 07/15/22 08:[address]: Elfego Mims DEPT: SURGICAL PATHOLOGY RECD BY: Tonie Frank ENTERED: 07/15/22 10:43 SP TYPE: EGD BIOPSY RISHI DR: Dr. Lashell Han MD Tissues: A - Duodenum, NOS B - Esophagus, NOS Procedures: Special Stain Group II Surgery Specimen Level IV Alcian Blue/PAS (control) HEADER OPERATION: EGD ([facility]) PRE-OP DIAGNOSIS: Gastroparesis TISSUE SUBMITTED: A ? Duodenum biopsy, B ? Distal esophagus biopsy MICROSCOPIC DIAGNOSIS A. Duodenum, biopsy: Fragments of duodenal mucosa with acute inflammation. B. Distal esophagus, biopsy: Fragments of gastroesophageal mucosa with chronic inflammation. Intestinal metaplasia (goblet cell metaplasia) not identified. See comment. ЕКАТЕРИНА:juan 07/16/2022 COMMENT B. The specimen predominantly consists of gastric mucosa. Alcian blue/PAS stain with matched control is used in the evaluation of the specimen. MICROSCOPIC DESCRIPTION Slides are reviewed. GROSS DESCRIPTION A - Received in fixative is one container labeled with the patient's name and designated duodenum biopsy. The specimen consists of two irregular fragments of light becerril soft tissue that in aggregate measure 0.5 x 0.3 x 0.1 cm. The specimen is totally submitted in one cassette. B - Received in fixative is one container labeled with the patient's name and designated distal esophagus biopsy. The specimen consists of two irregular fragments of light becerril soft tissue that in aggregate measure 0.7 x 0.5 x 0.1 cm. The specimen is totally submitted in one cassette. / AM:juan 07/15/2022 TC:2 CPT: 26273 x2, 22018
--- NOTE | 2022-07-15 08:48 | OP.EGD_ITS ---
Patient Name: Brigida Ulrich Procedure Date: 07/15/2022 8:21 AM Date of : 1995 Age: 27 Procedure: Upper GI endoscopy Indications: Epigastric abdominal pain, Functional Dyspepsia Providers: Elfego Mims DO Medicines: Monitored Anesthesia Care Patient Profile: This is a 27 year old female. Refer to note in patient chart for documentation of history and physical. Patient has symptoms of chronic abdominal distention and chronic epigastric abdominal pain. Complications: No immediate complications. Procedure: Pre-Anesthesia Assessment: - Prior to the procedure, a History and Physical was performed, and patient medications and allergies were reviewed. The patient is competent. The risks and benefits of the procedure and the sedation options and risks were discussed with the patient. All questions were answered and informed consent was obtained. Patient identification and proposed procedure were verified by the physician. Mental Status Examination: alert and oriented. Airway Examination: normal oropharyngeal airway and neck mobility. Respiratory Examination: clear to auscultation. Prophylactic Antibiotics: The patient does not require prophylactic antibiotics. Prior Anticoagulants: The patient has taken no previous anticoagulant or antiplatelet agents. ASA Grade Assessment: II - A patient with mild systemic disease. After reviewing the risks and benefits, the patient was deemed in satisfactory condition to undergo the procedure. The anesthesia plan was to use monitored anesthesia care (MAC). Immediately prior to administration of medications, the patient was re-assessed for adequacy to receive sedatives. The heart rate, respiratory rate, oxygen saturations, blood pressure, adequacy of pulmonary ventilation, and response to care were monitored throughout the procedure. The physical status of the patient was re-assessed after the procedure. After obtaining informed consent, the endoscope was passed under direct vision. Throughout the procedure, the patient's blood pressure, pulse, and oxygen saturations were monitored continuously. The Endoscope was introduced through the mouth, and advanced to the second part of duodenum. The upper GI endoscopy was accomplished without difficulty. The patient tolerated the procedure well. Scope In: 8:36:19 AM Scope Out: 8:41:39 AM Total Procedure Duration Time 0 hours 5 minutes 20 seconds Findings: The Z-line was irregular and was found 38 cm from the incisors. Biopsies were taken with a cold forceps for histology. Verification of patient identification for the specimen was done. Estimated blood loss was minimal. A small hiatal hernia was present. No gross lesions were noted in the stomach. Patchy mildly erythematous mucosa without active bleeding and with no stigmata of bleeding was found in the duodenal bulb. Biopsies were taken with a cold forceps for histology. Verification of patient identification for the specimen was done. Estimated blood loss was minimal. Impression: - Z-line irregular, 38 cm from the incisors. Biopsied. - Small hiatal hernia. - No gross lesions in the stomach. - Erythematous duodenopathy. Biopsied. Recommendation: - Discharge patient to home. - Resume previous diet. - Continue present medications. - Await pathology results. Procedure Code(s): --- Professional --- 05735, Esophagogastroduodenoscopy, flexible, transoral; with biopsy, single or multiple CPT copyright 2017 [employer]. All rights reserved. The codes documented in this report are preliminary and upon manager traffic review may be revised to meet current compliance requirements. Elfego Mims DO 07/15/2022 8:47:37 AM This report has been signed electronically. Number of Addenda: 0 Note Initiated On: 07/15/2022 8:21 AM
--- NOTE | 2022-07-15 08:49 | OP.CCLET_ITS ---
07/15/2022 Lashell Han [facility] [address] [place] [address] Re : Upper GI endoscopy procedure for Brigida Ulrich Dear Dr. Han This procedure was performed on June. My impressions and recommendations are as follows: Impressions : - Z-line irregular, 38 cm from the incisors. Biopsied. - Small hiatal hernia. - No gross lesions in the stomach. - Erythematous duodenopathy. Biopsied. Recommendations : - Discharge patient to home. - Resume previous diet. - Continue present medications. - Await pathology results. My findings are described in the full procedure note, which is enclosed. If I can be of further assistance, please feel free to contact me at . Sincerely, Elfego Mims, 07/15/2022 8:47:37 AM This report has been signed electronically.
== END 2022-07-15 09:41 | disposition home or self-care (01) ==
LOC: EN 07:31 → AC 07:32
PROVIDERS: PCP Internal Medicine; Referring Provider Internal Medicine; Visit Provider Internal Medicine Gastroenterology
PROC: 0DJ08ZZ Inspection of Upper Intestinal Tract, Via Natural or Artificial Opening Endoscopic (ICD-10-PCS; CPT 43235; principal; 2022-07-15 08:25)
DX: K20.90 Esophagitis, unspecified without bleeding (principal); K44.9 Diaphragmatic hernia without obstruction or gangrene; F17.210 Nicotine dependence, cigarettes, uncomplicated; K31.84 Gastroparesis; K58.9 Irritable bowel syndrome, unspecified; K29.80 Duodenitis without bleeding; J45.909 Unspecified asthma, uncomplicated
CPT/HCPCS: 43239; 88305; 88313; J7120

== ENCOUNTER → 2022-08-30 | Outpatient (CLI) | payer BC, SELFPAY ==
--- NOTE | 2022-08-30 08:51 | NM_ITS ---
CLINICAL: 27-year-old female with history of postprandial nausea and abdominal pain. SOLID PHASE 99m Tc SULFUR COLLOID GASTRIC EMPTYING STUDY COMPARISON: Semisolid phase gastric emptying study dated 03/12/2022 FINDINGS: The patient was administered 1.0 mCi of 99m Tc sulfur colloid mixed with egg and consumed per os. Image acquisitions in the anterior-posterior projections were obtained for 225 minutes following meal consumption. There is prompt visualization of the stomach. There is no gastroesophageal reflux identified. First order kinetics are maintained throughout the duration of the acquisitions. The T ? raw data emptying was calculated to be 109.86 minutes, (Normal 65-110 minutes). 86 % emptying and 14 % retention are defined at 225 minutes post meal ingestion compared to a T ? > 300 minutes for the semisolid emptying study dated 03/12/2022. NM/Gastric Emptying Study IMPRESSION: 1. ABNORMAL 99m Tc sulfur colloid solid phase gastric emptying imaging examination. A. Greater than 10% retention of the initial gastric contents at 4 hours post dose is consistent with abnormal solid phase gastric emptying. (Carin et al, J Nucl Med 48: 568, 2007). B. Compared to the study dated 03/12/2022, there is interim improvement as defined above. Electronically Signed: Maikel Walls, at 8:25 EDT ,
== END | disposition home or self-care (01) ==
LOC: NM 08:50
PROVIDERS: PCP Internal Medicine; Referring Provider Internal Medicine Gastroenterology; Visit Provider Internal Medicine Gastroenterology
DX: K31.84 Gastroparesis (principal)
CPT/HCPCS: 78264; A9541